=== PATIENT | male | born 1930 | race Caucasian/White ===

== ENCOUNTER 2019-12-12 18:29 | Inpatient (IN) | payer OTHER, BC, SELFPAY ==
[~2019-12-12] VITALS: Ht 198.1 cm; Wt 51.9 kg
[2019-12-12 18:47] VITALS: BP_SYST 119; BP_SYST 208
--- NOTE | 2019-12-12 18:47 | NUR ---
Placed in room 8. Placed on cardiac monitor technician, blood pressure machine and pulse oximeter. To gown for exam. Side rails up.
--- NOTE | 2019-12-12 18:48 | NUR ---
Patient came via [facility] from a SNF. Patient is non-verbal, no visual tracking. Complaint is GI bleed, low BP, hypoxia.
--- NOTE | 2019-12-12 19:14 | NUR ---
Patient is combatative, not staying still for CXR, Dr. Lopez notified.
[2019-12-12] MEDS ORDERED: LORazepam 2 MG/ML VIAL IVP ONE ×2 (19:15→19:45)
--- NOTE | 2019-12-12 19:15 | NUR ---
Report given to GYPSY Loaiza for continuation of care.
--- NOTE | 2019-12-12 19:26 | NUR ---
pt is combative and removing all lines, blood pressure cuff, IV lines, and ekg's. Pt medicated as ordered.
--- NOTE | 2019-12-12 19:40 | NUR ---
pt is still not cooperating with treatment. Not able to obtain labs or start new lines on patient. made aware.
--- NOTE | 2019-12-12 20:45 | NUR ---
PT CONTINUES TO BE UNCOOPERATIVE WITH TREATMENT. CONSTANTLY REMOVING IV LINE, BLOOD PRESSURE CUFF AND HEART MONITOR. WELL REMOVING HIS OXYGEN. PROVIDER MADE AWARE. NEW ORDERS RECIEVED.
[2019-12-12 20:59] LABS: HEMATOCRIT 43.8 % (36-54); HEMOGLOBIN 13.6 g/dL (14.0-18.0); LYMPHOCYTES % (AUTO) 6.9 % (20.5-51.5); MEAN CORPUSCULAR HEMOGLOBIN 29 pg (27-31); MEAN CORPUSCULAR HGB CONC 31 % (32-36); MEAN CORPUSCULAR VOLUME 93 fL (79.0-98.0); MONOCYTES # (AUTO) 0.9 K/uL (0.0-1.0); MONOCYTES % (AUTO) 6.2 % (1.7-9.3); NEUTROPHILS # (AUTO) 12.2 K/uL (1.8-7.7); NEUTROPHILS % (AUTO) 86.9 % (40.0-70.0); PLATELET COUNT (AUTO) 138 K/uL (130-430); RED CELL DISTRIBUTION WIDTH 16.9 % (9.0-15.0); WHITE BLOOD COUNT (AUTO) 14.1 K/uL (4.8-10.8)
[2019-12-12] MEDS ORDERED: DIPHENHYDRAMINE INJ 50 MG/ML VIAL IVP ONE (21:00)
[2019-12-12] MEDS ORDERED: HALOPERIDOL LACTATE 5 MG/ML VIAL IM ONE (21:00)
[2019-12-12 21:27] LABS: ANION GAP 24 (5-15); CHLORIDE 116 mmol/L (98-107); GLUCOSE 110 mg/dL (70-99); SODIUM SERUM 150 mmol/L (136-145)
[2019-12-12 21:30] LABS: ALANINE AMINOTRANSFERASE 17 U/L (12-78); ALBUMIN 3.9 g/dL (3.4-4.8); ASPARTATE AMINOTRANSFERASE 17 U/L (10-37); TOTAL BILIRUBIN 0.6 mg/dL (0.0-1.0)
[2019-12-12 21:35] LABS: CREATININE 10.96 mg/dL (0.55-1.30); POTASSIUM 7.6 mmol/L (3.5-5.1); UREA NITROGEN, BLOOD 186 mg/dL (8-21)
[2019-12-12] MEDS ORDERED: LIP10 PO (21:45)
[2019-12-12] MEDS ORDERED: SPIR25TA PO (21:45)
[2019-12-12] MEDS ORDERED: FINA5TAB3 PO (21:46)
[2019-12-12] MEDS ORDERED: CYAN100T3 PO (21:47)
[2019-12-12] MEDS ORDERED: BENA20TA75 PO ×2 (21:48→21:51)
[2019-12-12] MEDS ORDERED: CHOL100035 PO (21:48)
[2019-12-12] MEDS ORDERED: AMLO5TAB4 PO (21:49)
[2019-12-12] MEDS ORDERED: HYDR12.55 PO (21:49)
--- NOTE | 2019-12-12 21:53 | NUR ---
Medication reconciliation completed with information provided by Pino Schofield. Any prior medication reconciliation on file was reviewed and corrected.
[2019-12-12] MEDS ORDERED: INSULIN REGULAR, HUMAN 10 UNITS/0.1 ML INJ IVP ONE (22:00)
[2019-12-12] MEDS ORDERED: DEXTROSE 50% JECT 50 ML DISP.SYRIN IVP ONE (22:00)
[2019-12-12] MEDS ORDERED: SODIUM POLYSTYRENE SULFONATE 15 GM/60 ML UDBTL PO ONE (22:00)
--- NOTE | 2019-12-12 22:04 | NUR ---
pt continues to not allow EKG to be done or IV. made aware.
[2019-12-13] VITALS (23 sets, daily range): BP systolic 73–150
--- NOTE | 2019-12-13 | NUR ---
Spoke with Dr. Ash, recieved dialysis orders. Stated that admission orders would be issued by . instructed to consult for placement of Dialysis catheter in order to facilitate emergency dialysis.
--- NOTE | 2019-12-13 00:01 | NUR ---
contacted, stated that he would be unable to perform dialysis catheter placement, to consult . Dr. Valle was contacted and stated he will be able to do placement in early am, approx 7.
--- NOTE | 2019-12-13 00:02 | NUR ---
Spoke with for admission orders. Patient will be admitted to care of . Admitted to ICU unit. Pending room assignment, pt will be ICU Hold in ER. Belongings list completed. Complete and up to date summary report printed. SBAR report to be given at bedside with opportunity for questions during transfer.
[2019-12-13] MEDS ORDERED: SODIUM POLYSTYRENE SULFONATE 15 GM/60 ML UDBTL NG ONE (00:45)
[2019-12-13] MEDS ORDERED: HEPARIN SODIUM,PORCINE 5000 UNITS/ML VIAL MC SCH (02:00)
[2019-12-13] MEDS: SODIUM BICARBONATE 8.4% JECT 100 MEQ in D5W 1,000 ML IV SCH ×2 (02:19→23:44)
[2019-12-13] MEDS ORDERED: SODIUM BICARBONATE 8.4% JECT 50 MEQ/50 ML SYRINGE ONE ×3 (02:42→05:49)
[2019-12-13] MEDS ORDERED: LORazepam 2 MG/ML VIAL IVP ONE (05:30)
[2019-12-13] MEDS ORDERED: LORazepam 2 MG/ML VIAL ONE (05:53)
[2019-12-13 06:43] LABS: BASOPHILS % (AUTO) 0.1 % (0.0-2.0); HEMATOCRIT 37.7 % (36-54); HEMOGLOBIN 12.3 g/dL (14.0-18.0); LYMPHOCYTES # (AUTO) 0.6 K/uL (1.0-5.5); LYMPHOCYTES % (AUTO) 4.8 % (20.5-51.5); MEAN CORPUSCULAR HEMOGLOBIN 29 pg (27-31); MEAN CORPUSCULAR HGB CONC 33 % (32-36); MEAN CORPUSCULAR VOLUME 89 fL (79.0-98.0); MONOCYTES # (AUTO) 1.2 K/uL (0.0-1.0); MONOCYTES % (AUTO) 9.8 % (1.7-9.3); NEUTROPHILS # (AUTO) 10.8 K/uL (1.8-7.7); NEUTROPHILS % (AUTO) 85.3 % (40.0-70.0); PLATELET COUNT (AUTO) 132 K/uL (130-430); RED BLOOD CELL COUNT(AUTO) 4.23 MIL/uL (4.2-6.2); RED CELL DISTRIBUTION WIDTH 16.2 % (9.0-15.0); WHITE BLOOD COUNT (AUTO) 12.7 K/uL (4.8-10.8)
[2019-12-13 06:56] LABS: ANION GAP 21 (5-15); CALCIUM 8.6 mg/dL (8.4-11.0); CHLORIDE 115 mmol/L (98-107); GLUCOSE 130 mg/dL (70-99); SODIUM SERUM 148 mmol/L (136-145)
[2019-12-13 06:58] LABS: ALANINE AMINOTRANSFERASE 19 U/L (12-78); ALBUMIN 3.7 g/dL (3.4-4.8); PHOSPHORUS 7.9 mg/dL (2.7-4.5); TOTAL BILIRUBIN 0.8 mg/dL (0.0-1.0)
[2019-12-13 07:08] LABS: POTASSIUM 5.9 mmol/L (3.5-5.1); UREA NITROGEN, BLOOD 186 mg/dL (8-21)
[2019-12-13 07:09] LABS: ASPARTATE AMINOTRANSFERASE 32 U/L (10-37)
--- NOTE | 2019-12-13 07:30 | NUR ---
Patient will be admitted to [facility]. Admitted to ICU unit. Will go to room 2. Belongings list completed. Complete and up to date summary report printed. SBAR report to be given at bedside with opportunity for questions.
--- NOTE | 2019-12-13 07:45 | NUR ---
ICU Opening Note Patient brought to ICU-4 from ER for continuation of care. Patient on 15 L oxygen via face mask with labored breathing. Patient has NGT in place clamped. Patient is hypotensive with blood pressure 78/36. Patient has several peripheral IVs and a right femoral triple lumen central line. Patient has bautista catheter draining nelson urine to gravity. paged for orders. Will continue to monitor. Bed locked in lowest position and bed alarm on. Fall and safety precautions in place.
--- NOTE | 2019-12-13 08:58 | NUR ---
Dr. Olivo at bedside examining patient. Made aware of patient being hypotensive with blood pressure 73/42. New orders received to start Levophed.
[2019-12-13] MEDS ORDERED: NOREPINEPHRINE 4 MG/4 ML VIAL IV ONE (09:07)
[2019-12-13] MEDS: PIPERACILLIN/TAZO 2.25G/DEX-IS 50 ML IV SCH ×4 (09:45→23:44)
--- NOTE | 2019-12-13 09:45 | NUR ---
Dr. Barreto in unit. New orders received.
--- NOTE | 2019-12-13 10:00 | NUR ---
Intubation Dr. Barreto at bedside for intubation. No signs or symptoms of acute distress noted. Patient intubated with ETT size 7.5, lip line 24 cm. Vent settings AC 16, TV 450, FiO2 100%, and PEEP 0.
[2019-12-13 11:10] LABS: INR 1.1 (0.80-1.20)
[2019-12-13] MEDS ORDERED: PANTOPRAZOLE SODIUM 40 MG/VIAL (PROTONIX) IVP ONE (11:15)
--- NOTE | 2019-12-13 11:40 | NUR ---
Hemodialysis Hemodialysis being done at bedside by hybrid tester.
[2019-12-13] MEDS ORDERED: ALBUMIN HUMAN 25% 100 ML IV ONE ×2 (11:44→11:52)
[2019-12-13] MEDS ORDERED: HEPARIN SODIUM,PORCINE 5000 UNITS/ML VIAL IV ONE ×2 (12:15)
[2019-12-13] MEDS ORDERED: ROCURONIUM BROMIDE 10 MG/ML (ZEMURON) IV ONE (12:25)
[2019-12-13] MEDS ORDERED: ETOMIDATE 20 MG/ 10 ML VIAL (AMIDATE) IVP ONE (12:25)
[2019-12-13] MEDS ORDERED: HEPARIN SODIUM,PORCINE 5000 UNITS/ML VIAL ONE (12:28)
--- NOTE | 2019-12-13 14:23 | NUR ---
Stat chest xray ordered for tube placement. Vent changed out and pts pressures remain low with vent continuing to alarm. Radiology called. HR 86, RR 32, 02 sats 100% abd BP 109/51 on Levophed at 8 mcgs.
--- NOTE | 2019-12-13 15:39 | NUR ---
Spoke with Dr. Barreto regarding ABG results and ventilator continuing to alarm despite suctioning, checking for leaks, and switching out ventilator. Per Dr. Barreto, new vent settings made and orders for Diprivan Drip to be started. Also spoke with Dr. Barreto regarding unsuccessful attempts to insert NGT due to bleeding and patient being unable to tolerate. Per Dr. Barreto, try to insert NGT tomorrow.
[2019-12-13] MEDS ORDERED: VANCOMYCIN HCL 500 MG in NS 100 ML IV ONE (16:00)
--- NOTE | 2019-12-13 16:15 | NUR ---
RT NOTES DECREASED RATE TO 14 AND INCREASED VT TO [address] JULES. DECREASED FIO2 TO 50% PER ABG RESULTS. GYPSY GALVAN IS AWARE. WILL CONTINUE MONITORING.
[2019-12-13] MEDS: PROPOFOL DRIP 100 ML IV PRN (17:15)
[2019-12-13] MEDS: NOREPINEPHRINE BITARTRATE 8 MG in D5W 242 ML IV PRN ×2 (17:17→23:43)
[2019-12-13] MEDS ORDERED: ALBUMIN HUMAN 25% 200 ML IV ONE (19:15)
--- NOTE | 2019-12-13 19:29 | NUR ---
Closing Note Patient resting in bed, no signs or symptoms of acute distress noted. Endorsed bedside report to oncoming RN using SBAR approach for continuation of care.
--- NOTE | 2019-12-13 20:00 | NUR ---
PICC LINE INSERTED IN BENJAMÍN. ORALLY INTUBATED. SUCTIONED WITH MOD AMOUNT OF THIN MONAHAN COLORED MUCUS OBTAINED. ORAL CARE DONE. ON LEVOPHED DRIP AT 20 MCG/MIN. ON DIPRIVAN AT 15 MCG/KG/MIN. SUNDAR SOFT WRIST RESTRAINTS ON FOR SAFETY. RAHMAN CATH PATENT DRAINING CLEAR SID URINE TO GRAVITY. SR.
--- NOTE | 2019-12-13 21:00 | NUR ---
NASAL SWAB SENT TO LAB FOR MRSA TEST.
[2019-12-13] MEDS: PANTOPRAZOLE SODIUM 40 MG/VIAL (PROTONIX) IVP SCH (21:20)
--- NOTE | 2019-12-13 22:00 | NUR ---
HS CARE. SUCTIONED TURNED. PULSES PALPABLE.
--- NOTE | 2019-12-13 23:00 | NUR ---
PT'S SISTER CHRISTIAN CALLED. UPDATED ON STATUS.
[2019-12-14] VITALS (36 sets, daily range): BP systolic 93–136
--- NOTE | 2019-12-14 | NUR ---
SUCTIONED. TURNED. ORAL CARE RENDERED.
--- NOTE | 2019-12-14 02:00 | NUR ---
ASLEEP/SEDATED. NO DISTRESS NOTED.
--- NOTE | 2019-12-14 04:00 | NUR ---
SUCTIONED. TURNED. ORAL CARE DONE.
--- NOTE | 2019-12-14 05:00 | NUR ---
CHG BATH GIVEN. RAHMAN CARE, BACK CARE, SKIN CARE, MIN-CARE GIVEN. RESISTIVE TO CARE. PARTIAL LINEN CHANGE. DOES NOT ASSIST WITH TURNING. FERNIE PROC WELL.
[2019-12-14 05:52] LABS: BASOPHILS % (AUTO) 0.1 % (0.0-2.0); EOSINOPHILS % (AUTO) 0.1 % (0.0-4.0); HEMATOCRIT 34.8 % (36-54); HEMOGLOBIN 11.7 g/dL (14.0-18.0); LYMPHOCYTES # (AUTO) 1.6 K/uL (1.0-5.5); LYMPHOCYTES % (AUTO) 12.7 % (20.5-51.5); MEAN CORPUSCULAR HEMOGLOBIN 30 pg (27-31); MEAN CORPUSCULAR HGB CONC 34 % (32-36); MEAN CORPUSCULAR VOLUME 88 fL (79.0-98.0); MONOCYTES % (AUTO) 7.7 % (1.7-9.3); NEUTROPHILS # (AUTO) 10.2 K/uL (1.8-7.7); NEUTROPHILS % (AUTO) 79.4 % (40.0-70.0); PLATELET COUNT (AUTO) 109 K/uL (130-430); RED BLOOD CELL COUNT(AUTO) 3.98 MIL/uL (4.2-6.2); WHITE BLOOD COUNT (AUTO) 12.9 K/uL (4.8-10.8)
--- NOTE | 2019-12-14 06:00 | NUR ---
UO GOOD. STILL AT LEVOPHED DRIP AT 20 MCG/MIN, & PROPOFOL DRIP AT 15 MCG/KG/MIN. REMAINS IN GUARDED CONDITION.
[2019-12-14] MEDS: PIPERACILLIN/TAZO 2.25G/DEX-IS 50 ML IV SCH ×3 (06:15→17:17)
[2019-12-14 06:28] LABS: ANION GAP 15 (5-15); CALCIUM 7.9 mg/dL (8.4-11.0); CHLORIDE 102 mmol/L (98-107); CREATININE 6.79 mg/dL (0.55-1.30); GLUCOSE 178 mg/dL (70-99); POTASSIUM 3.9 mmol/L (3.5-5.1); SODIUM SERUM 142 mmol/L (136-145)
[2019-12-14] MEDS: NOREPINEPHRINE BITARTRATE 8 MG in D5W 242 ML IV PRN ×2 (06:56→15:37)
[2019-12-14] MEDS: PROPOFOL DRIP 100 ML IV PRN ×2 (06:58→22:11)
--- NOTE | 2019-12-14 06:58 | NUR ---
Nutrition Update Ludin Scale 14 noted. Pt admitted for Hyperkalemia, Renal Failure Diet: NPO BMI: 20.8 kg/m2 RD to follow per nutrition care standards.
[2019-12-14] MEDS ORDERED: NOREPINEPHRINE 4 MG/4 ML VIAL IV ONE (07:01)
[2019-12-14 07:12] LABS: UREA NITROGEN, BLOOD 105 mg/dL (8-21)
--- NOTE | 2019-12-14 07:15 | NUR ---
AM Endorsement Patient received from warehouse supervisor 3rd shift RN using SBAR format. Patient in no signs of distress at this time. Safety and isolation precautions observed.
--- NOTE | 2019-12-14 07:25 | NUR ---
Received critical lab result. bun and creatinine. trending down from previous result.
--- NOTE | 2019-12-14 08:00 | NUR ---
Opening Notes Patient sedated in bed with no signs of distress at this time. Patient connected to swimming pool service technician with NSR. Patient intubated and on ventilator with settings AC 14, tidal volume 500, FiO2 50%. Patient with BENJAMÍN PICC receiving sedation, levophed, and fluids. Patient with right femoral dialysis catheter for dialysis. Patient with bautista catheter draining nelson colored urine. Safety and isolation precautions observed.
[2019-12-14] MEDS: PANTOPRAZOLE SODIUM 40 MG/VIAL (PROTONIX) IVP SCH ×2 (08:05→22:10)
--- NOTE | 2019-12-14 10:30 | NUR ---
MD Rounds Dr. Olivo at bedside for examination. New orders received and carried out.
--- NOTE | 2019-12-14 12:00 | NUR ---
RN Rounds Patient being sedated at this time, no signs of distress noted. Patient orally suctioned with moderate blood-tinged secretions out. Safety precautions enforced.
--- NOTE | 2019-12-14 13:00 | NUR ---
Dialysis drafter directional survey at bedside at this time. Patient being closely monitored.
--- NOTE | 2019-12-14 13:00 | NUR ---
MD Rounds Dr. Valle at bedside for examination. No new orders received.
[2019-12-14] MEDS ORDERED: HEPARIN SODIUM, PORCINE 10,000 UNITS/ 10 ML VIAL MC ONE ×2 (14:00)
--- NOTE | 2019-12-14 16:00 | NUR ---
RN Rounds Patient still being sedated in bed at this time. Patient with no signs of distress. Safety precautions enforced.
--- NOTE | 2019-12-14 17:45 | NUR ---
RT NOTES Transported pt from ICU 4 to ICU 2, pt remained on the vent. ETT remains secure.
--- NOTE | 2019-12-14 17:50 | NUR ---
MD Rounds Dr. Barreto at bedside for examination. New orders received and carried out.
--- NOTE | 2019-12-14 17:55 | NUR ---
RT NOTES Per Dr Barreto's order, vent settings to PEEP 5
--- NOTE | 2019-12-14 18:00 | NUR ---
Room change Patient moved from ICU-4 to ICU-2 accompanied by two RNs and RT. Patient tolerated transfer well. Patient connected to mix house tender and ventilator set up. Patient with no signs of distress.
--- NOTE | 2019-12-14 19:20 | NUR ---
OPENING NOTE SBAR REPORT RECEIVED FROM DUGLAS BETANCUR. CARE ASSUMED. PT LAYING IN BED. PT SEDATED. PT INTUBATED. ETT SIZE 7.5 LIP LINE 24. VENT SETTINGS AC 14, TIDAL VOLUME 500, FIO2 50%, PEEP 5. PT TOLERATING SETTING WELL. O2 SATURATION 100%. SINUS RHYTHM ON MONITOR. PT HAS RUE PICC LINE RUNNING LEVOPHED @ 10 MCG/MIN AND DIPRIVAN @ 15 MCG/MIN. PT HAS RIGHT FEMORAL DIALYSIS ANN CATHETER. PT HAD DIALYSIS IN AM WITH 500ML OUTPUT. RADIAL AND PEDAL PULSES PRESENT. 2 + PITTING EDEMA TO LEFT HAND. ABDOMEN SOFT NON DISTENDED. BOWEL SOUNDS ACTIVE. RAHMAN CATHETER IN PLACE. URINE YELLOW. SKIN INTACT. BED LOCKED IN LOWEST POSITION. CALL LIGHT WITHIN REACH. SAFETY PRECAUTIONS IN PLACE. WILL CONTINUE TO MONITOR.
--- NOTE | 2019-12-14 19:24 | NUR ---
Closing Notes Patient endorsed to restaurant shift supervisor RN using SBAR format. Patient in no signs of distress at this time. Safety and isolation precautions enforced.
[2019-12-15] VITALS (35 sets, daily range): BP systolic 85–135
[2019-12-15] MEDS: PIPERACILLIN/TAZO 2.25G/DEX-IS 50 ML IV SCH ×5 (00:09→23:28)
[2019-12-15] MEDS: NOREPINEPHRINE BITARTRATE 8 MG in D5W 242 ML IV PRN ×2 (03:31→16:13)
[2019-12-15 05:10] LABS: BASOPHILS % (AUTO) 0.2 % (0.0-2.0); EOSINOPHILS # (AUTO) 0.1 K/uL (0.0-0.4); EOSINOPHILS % (AUTO) 0.9 % (0.0-4.0); HEMATOCRIT 34.9 % (36-54); HEMOGLOBIN 11.9 g/dL (14.0-18.0); LYMPHOCYTES # (AUTO) 1.7 K/uL (1.0-5.5); LYMPHOCYTES % (AUTO) 16.3 % (20.5-51.5); MEAN CORPUSCULAR HEMOGLOBIN 30 pg (27-31); MEAN CORPUSCULAR HGB CONC 34 % (32-36); MEAN CORPUSCULAR VOLUME 87 fL (79.0-98.0); MONOCYTES # (AUTO) 0.8 K/uL (0.0-1.0); MONOCYTES % (AUTO) 7.6 % (1.7-9.3); PLATELET COUNT (AUTO) 95 K/uL (130-430); RED BLOOD CELL COUNT(AUTO) 4.03 MIL/uL (4.2-6.2); RED CELL DISTRIBUTION WIDTH 14.9 % (9.0-15.0); WHITE BLOOD COUNT (AUTO) 10.7 K/uL (4.8-10.8)
[2019-12-15 05:37] LABS: ALANINE AMINOTRANSFERASE 29 U/L (12-78); ALBUMIN 3.4 g/dL (3.4-4.8); ANION GAP 10 (5-15); ASPARTATE AMINOTRANSFERASE 82 U/L (10-37); CALCIUM 7.7 mg/dL (8.4-11.0); CHLORIDE 99 mmol/L (98-107); CREATININE 4.57 mg/dL (0.55-1.30); GLUCOSE 143 mg/dL (70-99); POTASSIUM 3.3 mmol/L (3.5-5.1); SODIUM SERUM 136 mmol/L (136-145); TOTAL BILIRUBIN 2.1 mg/dL (0.0-1.0); UREA NITROGEN, BLOOD 55 mg/dL (8-21)
--- NOTE | 2019-12-15 07:35 | NUR ---
AM Endorsement Patient received from shift mechanic RN using SBAR format. No signs of distress noted. Safety and isolation precautions observed.
--- NOTE | 2019-12-15 07:48 | NUR ---
CLOSING NOTE PT LAYING IN BED. NO SIGNS AND SYMPTOMS OF DISTRESS NOTED. SBAR REPORT GIVEN TO DUGLAS BETANCUR. CARE ENDORSED.
--- NOTE | 2019-12-15 08:00 | NUR ---
Opening Notes Patient sedated in bed at this time. Patient connected to esthetic dermatologist with NSR. Patient intubated and on ventilator with settings AC 14, tidal volume 500, FiO2 50%, and PEEP 5. No signs of distress noted. Patient with BENJAMÍN PICC receiving sedation and vasopressor. Patient with right femoral dialysis catheter for dialysis. Patient has a bautista catheter draining urine. Safety and isolation precautions observed.
[2019-12-15] MEDS ORDERED: VANCOMYCIN HCL 1,000 MG in NS 250 ML IV ONE (09:00)
[2019-12-15] MEDS: PANTOPRAZOLE SODIUM 40 MG/VIAL (PROTONIX) IVP SCH ×2 (09:26→20:32)
--- NOTE | 2019-12-15 12:00 | NUR ---
RN Rounds/CHG Patient with no signs of distress at this time. Patient still being sedated. CHG bath given and linens changed. Patient tolerated well. Patient suctioned orally with blood-tinged moderate secretions out. Safety precautions enforced.
--- NOTE | 2019-12-15 13:57 | NUR ---
Paged Dr. Graham for orders. Spoke with exchange.
--- NOTE | 2019-12-15 14:57 | NUR ---
New consult paged to Dr. Kruse, spoke with exchange.
--- NOTE | 2019-12-15 15:00 | NUR ---
Witnessed diprivan drip titration to 20 mcg/kg/min
--- NOTE | 2019-12-15 15:03 | NUR ---
GI Consult Dr. Kruse paged for consult regarding nutrition/ unable to place an OGT/NGT. Per Dr. Kruse, he will come by tomorrow morning to attempt OGT/NGT insertion.
--- NOTE | 2019-12-15 15:57 | NUR ---
Dietitian Recommendations *When/if medically feasible, initiate nutrition support. Please see Nutrition Assessment for further details. LT, RD
[2019-12-15] MEDS: D5/0.45 NS 1,000 ML IV SCH (17:47)
[2019-12-15] MEDS: PROPOFOL DRIP 100 ML IV PRN (17:48)
--- NOTE | 2019-12-15 19:30 | NUR ---
PM SHIFT ASSESSMENT Pt is sedated on vent. SR noted on monitor. BENJAMÍN PICCLINE in place with IVF infusing. Delgado catheter in place and draining to gravity. Skin warm and dry. Safety precautions in place, call light within reach. Will continue to monitor.
--- NOTE | 2019-12-15 19:31 | NUR ---
Closing Notes Patient endorsed to maintenance technician 3rd shift RN using SBAR format. No signs of distress noted.
[2019-12-16] VITALS (33 sets, daily range): BP systolic 82–151
--- NOTE | 2019-12-16 02:00 | NUR ---
Witnessed Witnessed Winnie BETANCUR titrate diprivan drip from 20 mcg/kg/min to 25 mcg/kg/min.
[2019-12-16] MEDS: PROPOFOL DRIP 100 ML IV PRN ×3 (02:34→18:01)
[2019-12-16] MEDS: PIPERACILLIN/TAZO 2.25G/DEX-IS 50 ML IV SCH ×4 (05:06→23:55)
--- NOTE | 2019-12-16 07:20 | NUR ---
Received patient and endorsed report. Patient in no acute distress. Side rails x 3 up. Call light with in reach.
--- NOTE | 2019-12-16 07:24 | NUR ---
ENDORSEMENT Pt care endorsed to dayshift RN using nursing SBAR.
--- NOTE | 2019-12-16 08:30 | NUR ---
Md Kruse at bedside, placed OGT. Verified placement with auscultation. New order of chest x-ray.
--- NOTE | 2019-12-16 09:10 | NUR ---
Informed MD Kruse chest x-ray results of OGT placement, ordered to advance 5 to 10 centimeters than pull back and order new chest x-ray for verification of placement. Verified placement with auscultation.
--- NOTE | 2019-12-16 09:10 | NUR ---
MD Olivo at bedside.
[2019-12-16] MEDS: PANTOPRAZOLE SODIUM 40 MG/VIAL (PROTONIX) IVP SCH ×2 (09:23→20:52)
[2019-12-16] MEDS: NOREPINEPHRINE BITARTRATE 8 MG in D5W 242 ML IV PRN (10:46)
--- NOTE | 2019-12-16 11:20 | NUR ---
Rubin PAGED DR TORRES WITH REGARDS TO CHEST XRAY RESULT S/P OGT PLACEMENT.
[2019-12-16] MEDS: D5/0.45 NS 1,000 ML IV SCH ×2 (13:01→17:49)
--- NOTE | 2019-12-16 14:23 | NUR ---
Rubin PAGED DR TORRES IN REGARDS TO REPEATED CHEST XRAY, RETURNED THE CALL. READ OUT THE RADIOLOGIST'S IMPRESSION. STATED TO LEAVE THE OGT IN, NOT TO USE IT.
--- NOTE | 2019-12-16 16:25 | NUR ---
MD Barreto at bedside.
[2019-12-16] MEDS ORDERED: HEPARIN SODIUM,PORCINE 5000 UNITS/ML VIAL SUBCUT ONE (17:30)
--- NOTE | 2019-12-16 19:25 | NUR ---
Endorsed patient and gave report to NOC shift nurse. Patient in no acute distress. Side rails x 3 up.
--- NOTE | 2019-12-16 20:00 | NUR ---
ORALLY INTUBATED. SUCTIONED ETT WITH SMALL OF THIN WHITE MUCUS OBTAINED. ORAL CARE GIVEN. BUCCAL CAVITY WITH RED-TINGED SALIVA OBTAINED. SEATED. ON DIPRIVAN AT 25 MCG/KG/MIN. ON LEVOPHED DRIP AT 7 MCG/MIN. BENJAMÍN PICC LINE DRSG D/I. SUNDAR SOFT WRIST RESTRAINTS ON FOR SAFETY. RIGHT FEMORAL ANN CATH DRSG D/I. SUNDAR SCD'S IN PLACE. RAHMAN CATH PATENT DRAINING CLEAR YELLOW URINE TO GRAVITY. SR.
--- NOTE | 2019-12-16 21:40 | NUR ---
FIO2 DECREASED TO 40 % BY RT PER TITRATE ORDERS. HS CARE.
--- NOTE | 2019-12-16 23:00 | NUR ---
SISTER CHRISTIAN CALLED IN, UPDATED ON STATUS. REQUESTS DR ENRIQUE TO GIVE HER A CALL. NOTE LEFT WITH DR ENRIQUE.
[2019-12-17] VITALS (34 sets, daily range): BP systolic 95–140
--- NOTE | 2019-12-17 | NUR ---
SUCTIONED. TURNED. ORAL CARE GIVEN. PULSES PALPABLE.
--- NOTE | 2019-12-17 02:00 | NUR ---
ASLEEP. NO DISTRESS NOTED.
[2019-12-17] MEDS: NOREPINEPHRINE BITARTRATE 8 MG in D5W 242 ML IV PRN ×2 (03:48→20:20)
--- NOTE | 2019-12-17 04:00 | NUR ---
SUCTIONED. TURNED. ORAL CARE RENDERED. CIRCULATION CHECK DONE.
[2019-12-17] MEDS: PROPOFOL DRIP 100 ML IV PRN ×2 (05:11→21:26)
--- NOTE | 2019-12-17 06:00 | NUR ---
1 MODERATE DARK LOOSE BURGUNDY STOOL DEFECATED. UO GOOD. MIN CARE GIVEN. RAHMAN CARE, BACK CARE, SKIN CARE DONE. PARTIAL LINEN CHANGE DONE. PULSES PALPABLE. DOES NOT ASSIST WITH TURNING. FERNIE PROC WELL. REMAINS IN GUARDED CONDITION.
[2019-12-17] MEDS: PIPERACILLIN/TAZO 2.25G/DEX-IS 50 ML IV SCH ×3 (06:07→17:12)
[2019-12-17] MEDS: HEPARIN SODIUM,PORCINE 5000 UNITS/ML VIAL SUBCUT SCH ×2 (06:08→17:16)
[2019-12-17 06:39] LABS: BASOPHILS % (AUTO) 0.1 % (0.0-2.0); EOSINOPHILS # (AUTO) 0.5 K/uL (0.0-0.4); HEMATOCRIT 32.9 % (36-54); LYMPHOCYTES # (AUTO) 1.2 K/uL (1.0-5.5); LYMPHOCYTES % (AUTO) 10.1 % (20.5-51.5); MEAN CORPUSCULAR HEMOGLOBIN 29 pg (27-31); MEAN CORPUSCULAR HGB CONC 34 % (32-36); MEAN CORPUSCULAR VOLUME 86 fL (79.0-98.0); MONOCYTES # (AUTO) 0.8 K/uL (0.0-1.0); MONOCYTES % (AUTO) 7.2 % (1.7-9.3); NEUTROPHILS # (AUTO) 9.1 K/uL (1.8-7.7); NEUTROPHILS % (AUTO) 78.6 % (40.0-70.0); PLATELET COUNT (AUTO) 133 K/uL (130-430); RED BLOOD CELL COUNT(AUTO) 3.81 MIL/uL (4.2-6.2); RED CELL DISTRIBUTION WIDTH 14.4 % (9.0-15.0); WHITE BLOOD COUNT (AUTO) 11.6 K/uL (4.8-10.8)
[2019-12-17 06:45] LABS: ALANINE AMINOTRANSFERASE 30 U/L (12-78); ALBUMIN 2.7 g/dL (3.4-4.8); ANION GAP 15 (5-15); ASPARTATE AMINOTRANSFERASE 59 U/L (10-37); CALCIUM 7.6 mg/dL (8.4-11.0); CHLORIDE 98 mmol/L (98-107); CREATININE 4.61 mg/dL (0.55-1.30); GLUCOSE 120 mg/dL (70-99); SODIUM SERUM 137 mmol/L (136-145); TOTAL BILIRUBIN 1.2 mg/dL (0.0-1.0); UREA NITROGEN, BLOOD 59 mg/dL (8-21)
[2019-12-17 06:51] LABS: POTASSIUM 2.6 mmol/L (3.5-5.1)
--- NOTE | 2019-12-17 07:30 | NUR ---
Opening Note Received bedside report from endorsing RN for continuation of care. Received patient intubated and sedated, resting in bed. No signs or symptoms of acute distress noted. Bed locked in lowest position and bed alarm on. Fall and safety precautions in place.
--- NOTE | 2019-12-17 08:07 | NUR ---
Page out to Dr. Olivo, spoke with exchange.
--- NOTE | 2019-12-17 08:22 | NUR ---
Spoke with Dr. Olivo regarding potassium 2.6, new orders received.
--- NOTE | 2019-12-17 08:40 | NUR ---
Dr. Olivo in to see patient. New orders received.
[2019-12-17] MEDS ORDERED: POTASSIUM CHLORIDE 40 MEQ in NS 250 ML IV ONE ×2 (09:00→18:00)
[2019-12-17] MEDS: PANTOPRAZOLE SODIUM 40 MG/VIAL (PROTONIX) IVP SCH ×2 (09:58→22:25)
--- NOTE | 2019-12-17 11:15 | NUR ---
Witness diprivan drip titration to 15 mcg/kg/min
--- NOTE | 2019-12-17 11:15 | NUR ---
Jihan ELIAS at bedside examining patient. No new orders.
--- NOTE | 2019-12-17 11:30 | NUR ---
Witness diprivan drip titration 10 mcg/kg/min
--- NOTE | 2019-12-17 11:45 | NUR ---
Witness diprivan drip titration to 15 mcg/kg/min.
--- NOTE | 2019-12-17 12:49 | NUR ---
Dr. Martin at bedside examining patient. New orders received.
--- NOTE | 2019-12-17 13:36 | NUR ---
Jose Alfredo schofield drip titration to 15 mcg/kg/min. Addendum: 12/17/19 at 1339 by Shyanne Padron RN INCORRECT ENTRY
--- NOTE | 2019-12-17 14:20 | NUR ---
CHG/BM Patient given CHG bath and bed linens changed. Patient had loose liquid dark red stool. Patient cleaned, turned, repositioned, and suctioned. No signs or symptoms of acute distress noted. Bed locked in lowest position and bed alarm on. Fall and safety precautions in place.
--- NOTE | 2019-12-17 14:57 | NUR ---
Nutrition F/U Admitting Diagnosis Sepsis, R/O COVID-19 Reviewed Pertinent Medical/Surgical Hx Medical Record Other Medical History Comment: PMHx includes HTN, mild dementia, ESRD per physician notes. Pt was admitted for severe hypotension, acute renal failure, GI and rectal bleeding, septic shock, acute encephalopathy, and respiratory failure per physician notes. Per Bed Huddle 12/14, pt is modified code, family declined CPR. Subjective Information Pt is still in ICU, NPO status. RD spoke w/ RN via telephone who reports that pt remains unable to receive TF d/t unknown nasal blockage. RN reports that TPN will be considered if another MD tries and is still unable to place nasal tube tomorrow. RN reports no other upcoming plans/procedures. Pt was supposed to receive Nepro 20ml/hr with a goal rate of 40ml/hr and a free water flush 100ml Q6H. Pt tested negative for Covid on 12/14. Pt is not yet meeting nutrition needs and nutrition education not appropriate at this time. Current Diet Order/Nutrition Support NPO x4 days Patient/Significant Other Unable To Verbalize Education Provided Not Indicated Pertinent Medications Propofol, Vanco, Norepinephrine, Heparin, Protonix Pertinent Labs (12/16) K: 2.6 L, BUN: 59 H, Cr: 4.61 H, Glu: 120 H, Ca 7.6 L Height (Feet) 6 feet Height (Inches) 6.00 inches Weight (Pounds) 129 pounds Weight (Calculated Kilograms) 58.988766 kilograms Patient Weight 58.513 kg Body Mass Index 14.91 kg/m2 %IBW 91 Ellis/Adjusted Body Weight IBW: 142lbs, 65kg Recent Weight Change No - pt unable to verify Weight Status Underweight Gastrointestinal Symptoms None Usual Diet At Home Pt unable to verify Skin Integrity Comment: Ludin Score: 13. Per RN note, no pressure injuries identified, +2 pitting edema to the left hand. Current % PO NPO Estimated Energy Expenditure (kcals/day) 1244kcal/day ([place] for critical illness on vent) Estimated Protein Required (g/day) 88-117g/day (1.5-2g/kg based on critical illness, sepsis) Estimated Fluid Required (l/day) Fluid needs deferred to MD d/t TRE, HD. Problem/Etiology/Signs/Symptoms Inadequate enteral enfusion related to unknown nasal obstruction as evidenced by unsuccessful NGT and OGT placement (*ongoing) Increased nutrient needs related to increased metabolic demands as evidenced by critical illness, sepsis (*ongoing) Expected Outcomes/Goals Monitor provision of nutrition w/ goal of pt meeting at least 50% of estimated nutritional needs, labs trending WNL, normal GI function, and skin integrity/wt maintenance Dietitian Recommendations When/if medically feasible, initiate nutrition support. Follow Up High Risk: F/U in 2-3days
--- NOTE | 2019-12-17 15:13 | NUR ---
Dietitian Recommendations When/if medically feasible, initiate nutrition support. SS, RD
[2019-12-17] MEDS ORDERED: *TPN PER PHARMACY XX PRN (15:15)
[2019-12-17] MEDS ORDERED: DEXTROSE 50% JECT 50 ML DISP.SYRIN IVP PRN (15:15)
[2019-12-17] MEDS ORDERED: VANCOMYCIN HCL 1,000 MG in NS 250 ML IV ONE (16:00)
--- NOTE | 2019-12-17 17:45 | NUR ---
Witness diprivan drip titration to 20 mcg/kg/min
--- NOTE | 2019-12-17 18:45 | NUR ---
Hemodialysis Hemodialysis being done at bedside by owner/photographer. No signs or symptoms of acute distress noted.
--- NOTE | 2019-12-17 19:20 | NUR ---
OPENING NOTE RECEIVED PATIENT AFTER REPORT FROM DAYSHIFT NURSE. CURRENTLY RECEIVING DIALYSIS; DIALYSIS NURSE AT BEDSIDE. SEDATED WITH DIPRIVAN, LEVOPHED INFUSING FOR BP SUPPORT. VENT TO ETT IN PLACE; SETTINGS TOLERATED. WILL CONTINUE TO MONITOR PATIENT PER UNIT PROTOCOL.
--- NOTE | 2019-12-17 19:25 | NUR ---
Closing Note Endorsed bedside report to oncoming RN using SBAR approach for continuation of care.
[2019-12-17] MEDS ORDERED: HEPARIN SODIUM,PORCINE 5000 UNITS/ML VIAL ONE (21:32)
--- NOTE | 2019-12-17 22:40 | NUR ---
DIALYSIS OUTPUT 400. PATIENT TOLERATED WELL.
--- NOTE | 2019-12-17 23:00 | NUR ---
DR MANJARREZ AT BEDSIDE ATTEMPT TO PLACE NGT OR OGT UNSUCCESSFUL BY DR MANJARREZ. UNABLE TO PASS ENCOUNTERING RESISTANCE.
[2019-12-18] VITALS (32 sets, daily range): BP systolic 82–132
--- NOTE | 2019-12-18 00:20 | NUR ---
ASSESSMENT COMPLETED. PATIENT REPOSITIONED FOR COMFORT. BM NOTED WITH SIGNS OF BLEEDING RECTALLY. PATIENT WAS CLEANED.
[2019-12-18] MEDS: PIPERACILLIN/TAZO 2.25G/DEX-IS 50 ML IV SCH ×5 (01:13→23:52)
--- NOTE | 2019-12-18 03:00 | NUR ---
bleeding detected from Right groin wanda. New dressing applied and pressure dressing with 2 lbs bag also applied to control bleeding. will continue to monitor.
[2019-12-18] MEDS: D5/0.45 NS 1,000 ML IV SCH (05:00)
[2019-12-18] MEDS: HEPARIN SODIUM,PORCINE 5000 UNITS/ML VIAL SUBCUT SCH ×2 (06:00→18:54)
[2019-12-18 06:31] LABS: BASOPHILS % (AUTO) 0.4 % (0.0-2.0); EOSINOPHILS # (AUTO) 0.3 K/uL (0.0-0.4); EOSINOPHILS % (AUTO) 2.8 % (0.0-4.0); HEMATOCRIT 33.9 % (36-54); HEMOGLOBIN 11.2 g/dL (14.0-18.0); LYMPHOCYTES # (AUTO) 0.8 K/uL (1.0-5.5); LYMPHOCYTES % (AUTO) 6.6 % (20.5-51.5); MEAN CORPUSCULAR HEMOGLOBIN 29 pg (27-31); MEAN CORPUSCULAR HGB CONC 33 % (32-36); MEAN CORPUSCULAR VOLUME 88 fL (79.0-98.0); MONOCYTES % (AUTO) 8.9 % (1.7-9.3); NEUTROPHILS # (AUTO) 9.4 K/uL (1.8-7.7); NEUTROPHILS % (AUTO) 81.3 % (40.0-70.0); PLATELET COUNT (AUTO) 155 K/uL (130-430); RED BLOOD CELL COUNT(AUTO) 3.86 MIL/uL (4.2-6.2); RED CELL DISTRIBUTION WIDTH 15.3 % (9.0-15.0); WHITE BLOOD COUNT (AUTO) 11.6 K/uL (4.8-10.8)
[2019-12-18 06:58] LABS: ALANINE AMINOTRANSFERASE 29 U/L (12-78); ALBUMIN 2.6 g/dL (3.4-4.8); ANION GAP 11 (5-15); ASPARTATE AMINOTRANSFERASE 48 U/L (10-37); CALCIUM 8.1 mg/dL (8.4-11.0); CHLORIDE 99 mmol/L (98-107); CREATININE 2.91 mg/dL (0.55-1.30); GLUCOSE 145 mg/dL (70-99); PHOSPHORUS 3.4 mg/dL (2.7-4.5); POTASSIUM 3.5 mmol/L (3.5-5.1); SODIUM SERUM 135 mmol/L (136-145); TOTAL BILIRUBIN 1.2 mg/dL (0.0-1.0); TRIGLYCERIDES 147 mg/dL (30-150); UREA NITROGEN, BLOOD 29 mg/dL (8-21); VANCOMYCIN,RANDOM 21.4 ug/mL
--- NOTE | 2019-12-18 07:20 | NUR ---
Received patient and endorsed report. Patient in no acute distress. Side rails x 3 up. Call light with in reach.
[2019-12-18] MEDS: PROPOFOL DRIP 100 ML IV PRN ×2 (08:09→18:53)
[2019-12-18] MEDS: NOREPINEPHRINE BITARTRATE 8 MG in D5W 242 ML IV PRN ×2 (08:10→18:52)
[2019-12-18] MEDS: PANTOPRAZOLE SODIUM 40 MG/VIAL (PROTONIX) IVP SCH ×2 (09:10→21:08)
--- NOTE | 2019-12-18 09:55 | NUR ---
MD Olivo at bedside.
--- NOTE | 2019-12-18 10:00 | NUR ---
MD Martin at bedside.
--- NOTE | 2019-12-18 10:30 | NUR ---
MD Barreto at bedside.
--- NOTE | 2019-12-18 12:10 | NUR ---
Left unit for CT scan of the abdomen and chest.
--- NOTE | 2019-12-18 13:00 | NUR ---
Approximately [address] scan of the abdomen and chest with patient, tolerated procedure well.
--- NOTE | 2019-12-18 15:10 | NUR ---
Oh at bedside.
--- NOTE | 2019-12-18 15:15 | NUR ---
Reported to Oh at bedside patient's current Mario catheter site has moderate amount of blood drainage, MD ordered to remove site apply pressure dressing and to notify Oh before next dialysis for new dialysis access placement. Orders performed.
[2019-12-18] MEDS: INSULIN REGULAR, HUMAN 100 UNITS/ML, 10 ML VIAL (humuLIN R) SUBCUT PRN (15:36)
--- NOTE | 2019-12-18 16:11 | NUR ---
12[address] PT TO CT SCAN. BAGGED PT SAT 99%. PT TOLERATED. Addendum: 12/18/19 at 1626 by Marly Alanis RT Amended: Links added.
--- NOTE | 2019-12-18 19:10 | NUR ---
Dropped of urine collection at lab for urinalysis as ordered by MD Barreto.
--- NOTE | 2019-12-18 19:15 | NUR ---
Opening note Received patient after report from dayslaft nurse Wendie. Sedated with Diprivan, responding to painful stimuli. Levophed drip infusing at 12 mcg/min with SBP wnl. Continue to have sand bag to right groin s/p removal of wanda as per Dr PATIÑO. Will continue to monitor patient for bleeding from puncture site in right groin and for effectiveness of sedation. Vent to ETT in place and tolerating settings.
--- NOTE | 2019-12-18 19:22 | NUR ---
Endorsed patient and endorsed report to NOC shift nurse. Patient in no acute distress. Side rails x 3 up. Call light with in reach.
[2019-12-18 19:29] LABS: BILIRUBIN,URINE NEGATIVE (NEGATIVE); BLOOD, URINE 1+ (NEGATIVE); COLOR,URINE YELLOW (YELLOW); GLUCOSE,URINE NEGATIVE (NEGATIVE); KETONES,URINE NEGATIVE (NEGATIVE); LEUKOCYTE ESTERASE ,URINE TRACE (NEGATIVE); NITRITE, URINE NEGATIVE (NEGATIVE); PH,URINE 5.5 (5.0-8.0); PROTEIN URINE 1+ (NEGATIVE); UROBILINOGEN,URINE 0.2 (0.2-1.0)
[2019-12-18 19:31] LABS: CLARITY/URINE HAZY (CLEAR)
[2019-12-18 19:42] LABS: BACTERIA,URINE MODERATE /HPF (None Seen); RBC,URINE 0-3 /HPF (0-3); WBC,URINE 0-3 /HPF (0-3)
[2019-12-18] MEDS ORDERED: SODIUM CHLORIDE IV SCH ×8 (21:00)
[2019-12-18] MEDS ORDERED: POTASSIUM CHLORIDE IV SCH ×8 (21:00)
[2019-12-18] MEDS ORDERED: [UNRECOGNIZED DRUG - OTHER] IV SCH ×8 (21:00)
[2019-12-18] MEDS ORDERED: TPN CENTRAL IV SCH ×8 (21:00)
--- NOTE | 2019-12-18 21:00 | NUR ---
TPN started As per orders TPN was started at this time at 44 ml/h.
--- NOTE | 2019-12-18 21:30 | NUR ---
Dr Becerra at bedside. No new orders received
[2019-12-19] VITALS (34 sets, daily range): BP systolic 103–156
[2019-12-19] MEDS: INSULIN REGULAR, HUMAN 100 UNITS/ML, 10 ML VIAL (humuLIN R) SUBCUT PRN ×3 (00:28→18:48)
[2019-12-19] MEDS: D5/0.45 NS 1,000 ML IV SCH ×2 (01:00→18:45)
[2019-12-19] MEDS: PROPOFOL DRIP 100 ML IV PRN ×2 (01:32→10:39)
[2019-12-19] MEDS: NOREPINEPHRINE BITARTRATE 8 MG in D5W 242 ML IV PRN ×2 (04:39→18:42)
[2019-12-19] MEDS: HEPARIN SODIUM,PORCINE 5000 UNITS/ML VIAL SUBCUT SCH ×2 (06:00→18:49)
[2019-12-19 06:22] LABS: EOSINOPHILS # (AUTO) 0.4 K/uL (0.0-0.4); EOSINOPHILS % (AUTO) 4.6 % (0.0-4.0); HEMATOCRIT 29.9 % (36-54); HEMOGLOBIN 9.9 g/dL (14.0-18.0); LYMPHOCYTES # (AUTO) 0.7 K/uL (1.0-5.5); LYMPHOCYTES % (AUTO) 7.8 % (20.5-51.5); MEAN CORPUSCULAR HEMOGLOBIN 29 pg (27-31); MEAN CORPUSCULAR HGB CONC 33 % (32-36); MEAN CORPUSCULAR VOLUME 88 fL (79.0-98.0); MONOCYTES # (AUTO) 0.9 K/uL (0.0-1.0); MONOCYTES % (AUTO) 10.9 % (1.7-9.3); NEUTROPHILS # (AUTO) 6.7 K/uL (1.8-7.7); NEUTROPHILS % (AUTO) 76.7 % (40.0-70.0); PLATELET COUNT (AUTO) 163 K/uL (130-430); RED BLOOD CELL COUNT(AUTO) 3.41 MIL/uL (4.2-6.2); RED CELL DISTRIBUTION WIDTH 15.1 % (9.0-15.0); WHITE BLOOD COUNT (AUTO) 8.7 K/uL (4.8-10.8)
[2019-12-19] MEDS: PIPERACILLIN/TAZO 2.25G/DEX-IS 50 ML IV SCH ×3 (06:26→18:47)
[2019-12-19 06:38] LABS: ALANINE AMINOTRANSFERASE 28 U/L (12-78); ALBUMIN 2.3 g/dL (3.4-4.8); ANION GAP 10 (5-15); ASPARTATE AMINOTRANSFERASE 39 U/L (10-37); CALCIUM 7.8 mg/dL (8.4-11.0); CHLORIDE 96 mmol/L (98-107); CREATININE 3.15 mg/dL (0.55-1.30); GLUCOSE 175 mg/dL (70-99); PHOSPHORUS 3.7 mg/dL (2.7-4.5); SODIUM SERUM 130 mmol/L (136-145); TOTAL BILIRUBIN 0.9 mg/dL (0.0-1.0); UREA NITROGEN, BLOOD 33 mg/dL (8-21)
--- NOTE | 2019-12-19 07:30 | NUR ---
Opening Note Received plan of care from endorsing nurse Flakito BETANCUR.
[2019-12-19 08:07] LABS: POTASSIUM 2.9 mmol/L (3.5-5.1)
--- NOTE | 2019-12-19 08:35 | NUR ---
Critical Value Spoke to Dr. Coleman regarding 2.6K. Received order to infuse via IV 20 MEQ K Codey once.
[2019-12-19] MEDS: PANTOPRAZOLE SODIUM 40 MG/VIAL (PROTONIX) IVP SCH ×2 (08:53→21:34)
[2019-12-19] MEDS ORDERED: KCL 20 mEq in 100 mL (PREMIX) 100 ML IV ONE (09:15)
--- NOTE | 2019-12-19 10:33 | NUR ---
Nutrition F/U Admitting Diagnosis: Sepsis, R/O COVID-19 Medical History Comment: PMHx includes HTN, mild dementia, ESRD per physician notes. Pt was admitted for severe hypotension, acute renal failure, GI and rectal bleeding, septic shock, acute encephalopathy, and respiratory failure per physician notes. Per Bed Huddle 12/14, pt is modified code, family declined CPR. 12/17: MD notes: +dysphagia w/ difficulty inserting OGT or NGT. Subjective Information Pt remains in ICU, w/ diet order for EN via OGT. During bed huddle, it was discussed that pt was on TPN and was confirmed by pharmMariana Coker. TPN was started on the weekend at 44ml/hr. No lipids as pt was on propofol. RD a/w RN call back for current propofol rate. RN to discontinue EN order until NGT/OGT is inserted. Current TPN support provides: 1110 kcal, 63gm protein and GIR 3.3gm CHO/kg/min. RD and pharmD agreed on goal rate of 54ml/hr, no lipids for now as pt still receives propofol. Current Diet Order/Nutrition Support: Nepro at 40ml/hr (goal rate), FWF 100ml Q6H via OGT x 3 days (active but not provided d/t failed NGT insertion.) +D50% AA8.5% at 44ml/hr, No lipids via Central line. Pertinent Medications Propofol, piperacillin/tazobactam, Heparin, Protonix, Insulin Pertinent Labs (12/18) Na 130L, K 2.9L, BG 175H, POC BG 168H, BUN 33H, CRE 3.15H COVID-19 Negative x 2 (12/13 & 12/14) Height (Feet): 6 feet Height (Inches) 6.00 inches Weight (Pounds) 129 pounds Weight (Calculated Kilograms) 58.722545 kilograms Body Mass Index 14.91 kg/m2 Skin Integrity Comment: Ludin Score: 13. Per RN note, no pressure injuries identified, +2 pitting edema to the left hand. Current % PO N/A, NPO NEW Estimated Energy Expenditure (kcals/day) Temperature: 36.56 degrees Celsius, Ve: 7.9 1477 kcal/day (PSU for critical illness on vent) NEW Estimated Protein Required (g/day) 59-88gm/day (1-1.5g/kg based on ESRD, critical illness, sepsis) Estimated Fluid Required (l/day) Fluid needs deferred to MD d/t TRE, HD. Problem/Etiology/Signs/Symptoms Inadequate enteral infusion related to unknown nasal obstruction as evidenced by unsuccessful NGT and OGT placement (*ongoing) Increased nutrient needs related to increased metabolic demands as evidenced by critical illness, sepsis (*ongoing) Expected Outcomes/Goals Monitor intake from nutrition support w/ goal of pt meeting at least 80% of estimated nutritional needs, labs trending WNL, normal GI function, and skin integrity/wt maintenance Dietitian Recommendations * Recommend: keep NPO. * Recommend: D50% AA10% at 54ml/hr, no lipids via central line. Provides: 1362 kcal, 65 gm protein, 1296ml fluid and GIR 3.8gm CHO/kg/min. Meets: 92% of estimated calorie needs and 74% of upper end of estimated protein needs. Follow Up High Risk: F/U in 2-3days
--- NOTE | 2019-12-19 10:46 | NUR ---
Dietitian Recommendations * Recommend: keep NPO. * Recommend: D50% AA10% at 54ml/hr, no lipids via central line. Provides: 1362 kcal, 65 gm protein, 1296ml fluid and GIR 3.8gm CHO/kg/min. Meets: 92% of estimated calorie needs and 74% of upper end of estimated protein needs. Please see Nutrition F/U note for details. SNF, RD
--- NOTE | 2019-12-19 19:10 | NUR ---
Closing Note Provided plan of care via sbar to receiving RN.
[2019-12-19] MEDS ORDERED: TPN CENTRAL IV SCH ×9 (21:00)
[2019-12-19] MEDS ORDERED: SODIUM CHLORIDE IV SCH ×9 (21:00)
[2019-12-19] MEDS ORDERED: POTASSIUM CHLORIDE IV SCH ×9 (21:00)
[2019-12-19] MEDS ORDERED: [UNRECOGNIZED DRUG - OTHER] IV SCH ×9 (21:00)
[2019-12-19 22:08] LABS: HEPATITIS B CORE AB, IgM Negative (Negative); HEPATITIS B SURFACE AG Negative (Negative); HEPATITIS C VIRUS AB <0.1 s/co ratio (0.0-0.9)
[2019-12-20] VITALS (36 sets, daily range): BP systolic 100–132
[2019-12-20] MEDS: INSULIN REGULAR, HUMAN 100 UNITS/ML, 10 ML VIAL (humuLIN R) SUBCUT PRN (00:47)
[2019-12-20] MEDS: PROPOFOL DRIP 100 ML IV PRN (00:49)
[2019-12-20] MEDS: PIPERACILLIN/TAZO 2.25G/DEX-IS 50 ML IV SCH ×4 (00:50→18:26)
--- NOTE | 2019-12-20 02:00 | NUR ---
CHANGE IN CAREGIVER I assumed care after 199.
[2019-12-20] MEDS: HEPARIN SODIUM,PORCINE 5000 UNITS/ML VIAL SUBCUT SCH ×2 (06:06→18:30)
[2019-12-20 06:52] LABS: BASOPHILS % (AUTO) 0.2 % (0.0-2.0); EOSINOPHILS # (AUTO) 0.4 K/uL (0.0-0.4); EOSINOPHILS % (AUTO) 4.4 % (0.0-4.0); HEMATOCRIT 26.4 % (36-54); LYMPHOCYTES # (AUTO) 0.8 K/uL (1.0-5.5); LYMPHOCYTES % (AUTO) 8.9 % (20.5-51.5); MEAN CORPUSCULAR HEMOGLOBIN 30 pg (27-31); MEAN CORPUSCULAR HGB CONC 34 % (32-36); MEAN CORPUSCULAR VOLUME 87 fL (79.0-98.0); MONOCYTES % (AUTO) 11.3 % (1.7-9.3); NEUTROPHILS # (AUTO) 6.5 K/uL (1.8-7.7); NEUTROPHILS % (AUTO) 75.2 % (40.0-70.0); PLATELET COUNT (AUTO) 180 K/uL (130-430); RED BLOOD CELL COUNT(AUTO) 3.04 MIL/uL (4.2-6.2); WHITE BLOOD COUNT (AUTO) 8.7 K/uL (4.8-10.8)
[2019-12-20 07:27] LABS: ALANINE AMINOTRANSFERASE 33 U/L (12-78); ALBUMIN 2.1 g/dL (3.4-4.8); ANION GAP 13 (5-15); ASPARTATE AMINOTRANSFERASE 39 U/L (10-37); CALCIUM 7.6 mg/dL (8.4-11.0); CHLORIDE 103 mmol/L (98-107); CREATININE 2.81 mg/dL (0.55-1.30); GLUCOSE 115 mg/dL (70-99); PHOSPHORUS 2.4 mg/dL (2.7-4.5); POTASSIUM 3.2 mmol/L (3.5-5.1); SODIUM SERUM 137 mmol/L (136-145); TOTAL BILIRUBIN 0.6 mg/dL (0.0-1.0); UREA NITROGEN, BLOOD 36 mg/dL (8-21); VANCOMYCIN,RANDOM 13.7 ug/mL
--- NOTE | 2019-12-20 07:30 | NUR ---
Opening Note Received plan of care via sbar from endorsing nurse Yomaira BETANCUR.
[2019-12-20] MEDS: PANTOPRAZOLE SODIUM 40 MG/VIAL (PROTONIX) IVP SCH ×2 (08:09→20:59)
--- NOTE | 2019-12-20 08:20 | NUR ---
Dr. Coleman at bedside. Discussed patient K at 3.2 and discussed ABG. Patient will have vent change of 35% FIO2 and be placed on CPAP once diprivan is titrated off.
[2019-12-20] MEDS ORDERED: KCL 20 mEq in 100 mL (PREMIX) 100 ML IV ONE (09:30)
--- NOTE | 2019-12-20 10:15 | NUR ---
Patient off on Diprivan. Patient with RT and RN at bedside. Patient has guerrero 2 and has spontaneous eye opening and alert. Patient now on CPAP.
--- NOTE | 2019-12-20 10:26 | NUR ---
Dr. Graham at bedside. Provided report on patient. No new orders.
--- NOTE | 2019-12-20 14:45 | NUR ---
NIF (-5) and RSBI (11.42) reported to GYPSY Rocha.
[2019-12-20 15:07] LABS: HEPATITIS A AB, IgM Negative (Negative)
--- NOTE | 2019-12-20 15:15 | NUR ---
Spoke to Dr. Coleman and reported the RSVI and NIF. Received orders to place patient back to AC 14, TV 500, FIO2 35%, Peep 5.
--- NOTE | 2019-12-20 15:55 | NUR ---
Pt. placed on pervious ventilator settings per Dr. Coleman orders. AC 14, Vt 500, 35% with +5 PEEP
[2019-12-20] MEDS ORDERED: VANCOMYCIN HCL 1,000 MG in NS 250 ML IV ONE (16:00)
[2019-12-20] MEDS: D5/0.45 NS 1,000 ML IV SCH (16:07)
[2019-12-20] MEDS: NOREPINEPHRINE BITARTRATE 8 MG in D5W 242 ML IV PRN (16:07)
--- NOTE | 2019-12-20 20:00 | NUR ---
ASLEEP, EASILY AROUSED.WITHDRAWS TO PAINFUL STIMULI.DOES NOT FOLLOW COMMANDS.NEED FOR CONTINUED USE OF RESTRAINTS IS NECESSARY TO PREVENT UNTIMELY EXTUBATION.TURNED AND REPOSITIONED FOR COMFORT.
[2019-12-20] MEDS ORDERED: TPN CENTRAL IV SCH ×11 (21:00)
[2019-12-20] MEDS ORDERED: [UNRECOGNIZED DRUG - OTHER] IV SCH ×11 (21:00)
[2019-12-20] MEDS ORDERED: POTASSIUM CHLORIDE IV SCH ×11 (21:00)
[2019-12-20] MEDS ORDERED: SODIUM CHLORIDE IV SCH ×11 (21:00)
--- NOTE | 2019-12-20 21:00 | NUR ---
PICC LINE DRESSINGS CHANGED ASEPTICALLY.NO REDNESS NOR DRAINAGE NOTED.
[2019-12-21] VITALS (34 sets, daily range): BP systolic 89–132
--- NOTE | 2019-12-21 | NUR ---
LEVOPHED DRIP OFF AT THIS TIME.
[2019-12-21] MEDS: PIPERACILLIN/TAZO 2.25G/DEX-IS 50 ML IV SCH ×4 (00:15→17:27)
--- NOTE | 2019-12-21 04:00 | NUR ---
Transfer of care Received report from Odette BETANCUR using SBAR approach.
--- NOTE | 2019-12-21 04:20 | NUR ---
ASSESSMENT Patient is asleep but woke up when i did my assessment. Patient is on the ventilator. Vent settings AC 14, TV 500, Fi02 35 and Peep of 5. Does not follow commands. Restraints are still in place to prevent patient from withdrawing the tube. Bed locked in lowest position. Safety precautions in place. Will continue to monitor.
--- NOTE | 2019-12-21 04:50 | NUR ---
CHG Cleaned the patient and did CHG. Patient tolerated well. No signs of distress. Will continue to monitor.
[2019-12-21] MEDS: HEPARIN SODIUM,PORCINE 5000 UNITS/ML VIAL SUBCUT SCH ×2 (05:04→17:30)
--- NOTE | 2019-12-21 07:25 | NUR ---
Closing Note Gave report to AM nurse using SBAR approach.
[2019-12-21 07:31] LABS: ALANINE AMINOTRANSFERASE 41 U/L (12-78); ANION GAP 11 (5-15); ASPARTATE AMINOTRANSFERASE 50 U/L (10-37); CALCIUM 7.9 mg/dL (8.4-11.0); CHLORIDE 107 mmol/L (98-107); CREATININE 2.59 mg/dL (0.55-1.30); GLUCOSE 132 mg/dL (70-99); PHOSPHORUS 1.8 mg/dL (2.7-4.5); POTASSIUM 3.6 mmol/L (3.5-5.1); SODIUM SERUM 136 mmol/L (136-145); TOTAL BILIRUBIN 0.6 mg/dL (0.0-1.0); UREA NITROGEN, BLOOD 39 mg/dL (8-21)
--- NOTE | 2019-12-21 08:00 | NUR ---
Opening Notes Patient received awake in bed but does not follow commands. Patient connected to monitoring engineer with settings AC 14, FiO2 35%, tidal volume 500, PEEP 5 with no signs of distress noted. Patient with BENJAMÍN PICC receiving fluids and TPN. Patient with bautista catheter draining urine. Restraints in place. Safety precautions enforced.
--- NOTE | 2019-12-21 08:30 | NUR ---
RT NOTES Dr Coleman changed vent settings to CPAP 5 PS 10, no additional order given per RT Marly.
[2019-12-21] MEDS: PANTOPRAZOLE SODIUM 40 MG/VIAL (PROTONIX) IVP SCH ×2 (09:23→21:40)
[2019-12-21] MEDS ORDERED: FUROSEMIDE 20 MG/2 ML VIAL IVP ONE (10:15)
--- NOTE | 2019-12-21 12:00 | NUR ---
RN Rounds Patient resting in bed at this time with no signs of distress noted. Safety precaution enforced.
[2019-12-21] MEDS: D5/0.45 NS 1,000 ML IV SCH (13:00)
--- NOTE | 2019-12-21 13:34 | NUR ---
Nutrition F/U Admitting Diagnosis: Sepsis, R/O COVID-19 Medical History Comment: PMHx includes HTN, mild dementia, ESRD per physician notes. Pt was admitted for severe hypotension, acute renal failure, GI and rectal bleeding, septic shock, acute encephalopathy, and respiratory failure per physician notes. 12/20: notes, dialysis cath has been removed, renal function slowly improving and may not need a replacement of dialysis catheter. Second attempt to insert another tube through oral cavity was unsuccessful and ends up bringing up excess amount of secretion. Once able to wean off the vent, plan for EGD and GT placement in the future. Subjective Information Pt remains in ICU. RD s/w pt's primary RN earlier and she reported that pt has been off propofol since yesterday. Pt is now on NPO w/ TPN. RD s/w pharmD and rec to start lipid. PharmD to start lipids tomorrow. Monitor TG lab values. Current Diet Order/Nutrition Support: NPO +D50% AA10% at 54ml/hr, No lipids via Central line. Current TPN provides: 1362 kcal, 65gm protein and GIR 3.8 gm CHO/kg/min. Meets: 83% of estimated calorie needs and 74% of upper end of estimated protein needs. Pertinent Medications piperacillin/tazobactam, Heparin, Protonix, Insulin Pertinent Labs (12/20) Na 136 WNL, K 3.6 WNL, BG 132H, POC BG 128H, BUN 39H, CRE 2.59H, 12/17 TG 147 WNL COVID-19 Negative x 2 (12/13 & 12/14) Height (Feet): 6 feet Height (Inches) 6.00 inches Weight (Pounds) 129 pounds Weight (Calculated Kilograms) 58.055614 kilograms Body Mass Index 14.91 kg/m2 Skin Integrity Comment: Ludin Score: 13. Per RN note, no pressure injuries identified, +2 pitting edema to the left hand. Current % PO N/A, NPO NEW Estimated Energy Expenditure (kcals/day) Temperature: 36.83 degrees Celsius, Ve: 12 1477 kcal/day (PSU for critical illness on vent) Estimated Protein Required (g/day) 59-88gm/day (1-1.5g/kg based on ESRD, critical illness, sepsis) Estimated Fluid Required (l/day) Fluid needs deferred to MD d/t TRE, HD. Problem/Etiology/Signs/Symptoms Inadequate enteral infusion related to unknown nasal obstruction as evidenced by unsuccessful NGT and OGT placement (*ongoing) Increased nutrient needs related to increased metabolic demands as evidenced by critical illness, sepsis (*ongoing) Expected Outcomes/Goals Monitor intake from nutrition support w/ goal of pt meeting at least 80% of estimated nutritional needs, labs trending WNL, normal GI function, and skin integrity/wt maintenance Dietitian Recommendations * Recommend: keep NPO. * Recommend: D50% AA10% at 54ml/hr (goal rate), IL 20% at 5ml/hr via central line. Provides: 1602 kcal, 65 gm protein, 1416ml fluid and GIR 3.8gm CHO/kg/min. Meets: 97% of estimated calorie needs and 74% of upper end of estimated protein needs. Follow Up High Risk: F/U in 2-3days
--- NOTE | 2019-12-21 13:46 | NUR ---
Dietitian Recommendations * Recommend: keep NPO. * Recommend: D50% AA10% at 54ml/hr (goal rate), IL 20% at 5ml/hr via central line. Provides: 1602 kcal, 65 gm protein, 1416ml fluid and GIR 3.8gm CHO/kg/min. Meets: 97% of estimated calorie needs and 74% of upper end of estimated protein needs. RD s/w pharmD @3286 about rec. Please see Nutrition F/U note for details. JAYNE TRIANA
--- NOTE | 2019-12-21 16:00 | NUR ---
RN Rounds Patient resting in bed with no signs of distress at this time. Safety precautions enforced.
--- NOTE | 2019-12-21 19:15 | NUR ---
change of shift.pt.presents eet/og-tube inplace.pt.presents vent:c-pap mode.pt.tolerating the c-pap.pt.presents picc line;location:rt.bicept.arm:intact; patent;iv fluids/tpn infusing.pt.presents bautista cath;intact;patent urine content present.pt.presents restraints;wrist;bilateral. in place.affect; restless.loc;confused.call light w/in reach of the pt.pt.presents no isolation;standard status.
--- NOTE | 2019-12-21 19:35 | NUR ---
Closing Notes Patient endorsed to manufacturing supervisor 2nd shift RN using SBAR format. No signs of distress noted.
--- NOTE | 2019-12-21 20:00 | NUR ---
pt.assessed.v/s assessed;values w/in normal limits.eet/og tube intact;patent:vent;c-pap setting assessed.pt.tolerating the c-pap mode. fio2%=35%,peep:5,pressure support;10.picc line intact;patent iv fluids/tpn infusing.bautista cath intact;patent urine content present. pt.assessed for cleanliness.pt.repositioned.call light placed w/in reach of the pt.
[2019-12-21] MEDS ORDERED: TPN CENTRAL IV SCH ×12 (21:00)
[2019-12-21] MEDS ORDERED: [UNRECOGNIZED DRUG - OTHER] IV SCH ×12 (21:00)
[2019-12-21] MEDS ORDERED: POTASSIUM CHLORIDE IV SCH ×12 (21:00)
[2019-12-21] MEDS ORDERED: SODIUM CHLORIDE IV SCH ×12 (21:00)
--- NOTE | 2019-12-21 21:00 | NUR ---
2100p medications administered. Addendum: 12/22/19 at 0202 by Riki Villarreal RN i have attended to the administration:tpn;changed tubing.
--- NOTE | 2019-12-21 22:00 | NUR ---
pt.assessed.v/s assessed.values w/in normal limits.eet/og tube in place.i have attended to the oral care/suction.vent/c-pap assessed. picc line intact;patent iv fluids/tpn infusing.bautista cath intact;patent:urine content present.pt.assessed for cleanliness.pt.repositioned.general status stable.respiratory status stable.restraints in place;skin/circulation w/in normal limits. call light placed w/in reach of the pt.i have returned telephone call to pt's sister.i have provided pt's update/data w/in nsg parameters.
[2019-12-22] VITALS (31 sets, daily range): BP systolic 96–140
--- NOTE | 2019-12-22 | NUR ---
pt.assessed.v/s assessed;values w/in normal limits.eet/og-tube assessed in place.vent;c-pap mode assessed.i have attended to the oral care/suction.picc line intact;patent iv fluids/tpn infusing.bautista cath intact;patent urine content present.pt.assessed for cleanliness.pt.repositioned.restraints in place;skin/circulation assessed w/in normal limits.call light placed w/in reach of the pt. Addendum: 12/22/19 at 0153 by Riki Villarreal RN i have assessed the blood glucose;value:124mg/dl.
[2019-12-22] MEDS: PIPERACILLIN/TAZO 2.25G/DEX-IS 50 ML IV SCH ×5 (00:17→23:24)
--- NOTE | 2019-12-22 02:00 | NUR ---
pt.assessed.v/s assessed;values w/in normal limits.eet/og tube intact/patent.vent /c-pap assessed.i have attended to the oral care/suction. picc line intact;patent iv fluids/tpn infusing.bautista cath intact/patent:urine content present.pt.assessed for cleanliness.pt.repositioned. call placed w/in reach of the pt.
--- NOTE | 2019-12-22 04:00 | NUR ---
pt.assessed.v/s assessed values w/in normal limits.vent/c-pap assessed pt.tolerating vent/c-pap settings.i have attended to the oral care/suction.picc line intact;patent iv fluids/tpn infusing.bautista cath intact;patent urine content pt.repositioned. pt.assessed for cleanliness. restraints in place skin/circulation w/in normal limits.call light placed w/in reach of the pt.
[2019-12-22] MEDS: HEPARIN SODIUM,PORCINE 5000 UNITS/ML VIAL SUBCUT SCH ×2 (05:05→18:32)
[2019-12-22 05:57] LABS: BASOPHILS % (AUTO) 0.1 % (0.0-2.0); EOSINOPHILS # (AUTO) 0.3 K/uL (0.0-0.4); EOSINOPHILS % (AUTO) 3.6 % (0.0-4.0); HEMATOCRIT 22.8 % (36-54); HEMOGLOBIN 7.7 g/dL (14.0-18.0); LYMPHOCYTES # (AUTO) 1.2 K/uL (1.0-5.5); MEAN CORPUSCULAR HEMOGLOBIN 29 pg (27-31); MEAN CORPUSCULAR HGB CONC 34 % (32-36); MEAN CORPUSCULAR VOLUME 87 fL (79.0-98.0); MONOCYTES # (AUTO) 1.1 K/uL (0.0-1.0); MONOCYTES % (AUTO) 12.8 % (1.7-9.3); NEUTROPHILS # (AUTO) 6.3 K/uL (1.8-7.7); NEUTROPHILS % (AUTO) 70.5 % (40.0-70.0); PLATELET COUNT (AUTO) 264 K/uL (130-430); RED CELL DISTRIBUTION WIDTH 15.6 % (9.0-15.0); WHITE BLOOD COUNT (AUTO) 8.9 K/uL (4.8-10.8)
--- NOTE | 2019-12-22 06:00 | NUR ---
pt.assessed.v/s assessed;values w/in normal limits.pt.tolerating c-pap mode.i have attended to the oral care/suction. picc line intact;patent iv fluids/tpn infusing.i have assessed the blood glucose:value;134mg/dl.bautista cath intact;patent urine content present. pt.assessed for cleanliness.pt.repositioned.restraints in place;skin/circulation w/in normal limits.call light placed w/in reach of the pt.
[2019-12-22 06:32] LABS: ALANINE AMINOTRANSFERASE 52 U/L (12-78); ALBUMIN 1.9 g/dL (3.4-4.8); ANION GAP 10 (5-15); ASPARTATE AMINOTRANSFERASE 54 U/L (10-37); CALCIUM 8.2 mg/dL (8.4-11.0); CHLORIDE 110 mmol/L (98-107); GLUCOSE 141 mg/dL (70-99); PHOSPHORUS 2.4 mg/dL (2.7-4.5); POTASSIUM 3.5 mmol/L (3.5-5.1); SODIUM SERUM 137 mmol/L (136-145); TOTAL BILIRUBIN 0.5 mg/dL (0.0-1.0); TRIGLYCERIDES 86 mg/dL (30-150); UREA NITROGEN, BLOOD 47 mg/dL (8-21); VANCOMYCIN,RANDOM 18.3 ug/mL
--- NOTE | 2019-12-22 08:00 | NUR ---
Opening Notes Patient received resting in bed at this time. Patient connected to potline monitor NSR. Patient intubated with settings CPAP 5, pressure support 35%, and PEEP 5 with no signs of distress noted. Patient with BENJAMÍN PICC receiving fluids and TPN for nutrition. Patient has a bautista catheter draining urine. Safety precautions enforced.
[2019-12-22] MEDS: D5/0.45 NS 1,000 ML IV SCH (09:00)
[2019-12-22] MEDS: PANTOPRAZOLE SODIUM 40 MG/VIAL (PROTONIX) IVP SCH ×2 (09:20→21:59)
--- NOTE | 2019-12-22 12:00 | NUR ---
RN Rounds Patient awake and resting in bed. Patient not following commands at this time. Patient orally suctioned with moderate secretions out. Patient in no signs of distress at this time. Safety precautions enforced.
--- NOTE | 2019-12-22 16:30 | NUR ---
Blood Transfusion Patient receiving 1 unit PRBC at this time. Patient tolerating well. No signs of distress noted.
--- NOTE | 2019-12-22 18:11 | NUR ---
1745 PLACED PT BACK ON ORIGINAL SETTINGS AC14 500+5.35 Addendum: 12/22/19 at 1813 by Marly Alanis RT Amended: Links added.
--- NOTE | 2019-12-22 19:29 | NUR ---
Closing Notes Endorsed to shift manager RN using SBAR format. Patient in no signs of distress at this time.
--- NOTE | 2019-12-22 19:40 | NUR ---
Opening note Received patient after report from daysndft nurse. Vent to ETT in place tolerating settings. BENJAMÍN picc line present and patent. Orders noted to start lipids at 2100; currently infusing TPN. Delgado catheter in place and draining to gravity. will continue to monitor patient as per unit protocol.
--- NOTE | 2019-12-22 20:00 | NUR ---
Blood transfusion completed; no adverse reaction noted.
[2019-12-22] MEDS ORDERED: [UNRECOGNIZED DRUG - OTHER] IV SCH ×12 (21:00)
[2019-12-22] MEDS ORDERED: TPN CENTRAL IV SCH ×12 (21:00)
[2019-12-22] MEDS ORDERED: SODIUM CHLORIDE IV SCH ×12 (21:00)
[2019-12-22] MEDS ORDERED: POTASSIUM CHLORIDE IV SCH ×12 (21:00)
--- NOTE | 2019-12-22 21:00 | NUR ---
started on Lipids as per pharmacy
[2019-12-22] MEDS: FAT EMULSIONS 250 ML IV SCH (22:00)
--- NOTE | 2019-12-22 22:30 | NUR ---
Received order to start ferrilicit IV; medication obtained from nursing animal trainer supervisor and infusing. Will monitor patient for adverse reaction to ferrilicit during infusion.
[2019-12-22] MEDS: SOD FERRIC GLUC COMPLEX/SUC 125 MG in NS 100 ML IV SCH (22:57)
[2019-12-22] MEDS ORDERED: SOD FERRIC GLUC COMPLEX/SUC 62.5 MG/5 ML VIAL (FERRLECIT) IV ONE (23:01)
[2019-12-23] VITALS (27 sets, daily range): BP systolic 97–142
[2019-12-23] MEDS: D5/0.45 NS 1,000 ML IV SCH (05:00)
[2019-12-23 05:54] LABS: BASOPHILS % (AUTO) 0.3 % (0.0-2.0); EOSINOPHILS # (AUTO) 0.3 K/uL (0.0-0.4); EOSINOPHILS % (AUTO) 3.9 % (0.0-4.0); HEMATOCRIT 27.2 % (36-54); HEMOGLOBIN 9.4 g/dL (14.0-18.0); LYMPHOCYTES # (AUTO) 1.3 K/uL (1.0-5.5); LYMPHOCYTES % (AUTO) 14.8 % (20.5-51.5); MEAN CORPUSCULAR HEMOGLOBIN 30 pg (27-31); MEAN CORPUSCULAR HGB CONC 35 % (32-36); MEAN CORPUSCULAR VOLUME 87 fL (79.0-98.0); MONOCYTES # (AUTO) 0.8 K/uL (0.0-1.0); MONOCYTES % (AUTO) 8.4 % (1.7-9.3); NEUTROPHILS # (AUTO) 6.5 K/uL (1.8-7.7); NEUTROPHILS % (AUTO) 72.6 % (40.0-70.0); PLATELET COUNT (AUTO) 278 K/uL (130-430); RED BLOOD CELL COUNT(AUTO) 3.14 MIL/uL (4.2-6.2); RED CELL DISTRIBUTION WIDTH 15.4 % (9.0-15.0)
[2019-12-23] MEDS: PIPERACILLIN/TAZO 2.25G/DEX-IS 50 ML IV SCH ×4 (06:11→23:22)
[2019-12-23 06:19] LABS: ALANINE AMINOTRANSFERASE 45 U/L (12-78); ALBUMIN 1.8 g/dL (3.4-4.8); ANION GAP 12 (5-15); ASPARTATE AMINOTRANSFERASE 44 U/L (10-37); CALCIUM 8.1 mg/dL (8.4-11.0); CHLORIDE 107 mmol/L (98-107); CREATININE 2.49 mg/dL (0.55-1.30); GLUCOSE 127 mg/dL (70-99); PHOSPHORUS 2.8 mg/dL (2.7-4.5); POTASSIUM 3.5 mmol/L (3.5-5.1); SODIUM SERUM 137 mmol/L (136-145); TOTAL BILIRUBIN 0.7 mg/dL (0.0-1.0); UREA NITROGEN, BLOOD 47 mg/dL (8-21)
--- NOTE | 2019-12-23 07:30 | NUR ---
Opening Note Patient report received via SBAR from endorsing RN
[2019-12-23] MEDS: PANTOPRAZOLE SODIUM 40 MG/VIAL (PROTONIX) IVP SCH ×2 (08:12→20:17)
--- NOTE | 2019-12-23 09:00 | NUR ---
Round Dr. Coleman in to see patient, physician entered orders
--- NOTE | 2019-12-23 09:10 | NUR ---
0855 CHANGED VENT SETTINGS TO CPAP5, PS8 BY MD AMEZCUA. 0910 WEANING PARAMETERS RSBI 36, NIF -17 CM H2O, VC 316 ML.
--- NOTE | 2019-12-23 09:15 | NUR ---
Round Dr. Banuelos in to see patient, no new orders
--- NOTE | 2019-12-23 10:20 | NUR ---
MD Call Dr. Coleman contacted about ABG and weening results. New orders entered
--- NOTE | 2019-12-23 11:40 | NUR ---
1140 EXTUBATED PT PER MD AMEZCUA. PLACED NC 3LPM, HR 94, SPO2 97%. WILL CONTINUE TO MONITOR PT.
--- NOTE | 2019-12-23 11:45 | NUR ---
Nursing Note Patient extubated by RT and put on 3L oxygen via NC. Patient's saturation is at 97%.
[2019-12-23] MEDS ORDERED: IPRATROPIUM/ALBUTEROL SULFATE 3 ML AMPUL.NEB (DUONEB) INH ONE (12:00)
--- NOTE | 2019-12-23 12:00 | NUR ---
Round Dr. Graham in to see patient, no new orders
[2019-12-23] MEDS: IPRATROPIUM/ALBUTEROL SULFATE 3 ML AMPUL.NEB (DUONEB) INH SCH ×3 (15:15→23:19)
[2019-12-23] MEDS ORDERED: VANCOMYCIN HCL 1,000 MG in NS 250 ML IV SCH (16:00)
--- NOTE | 2019-12-23 17:00 | NUR ---
Nursing Note Patient had small BM, patient cleaned, linens changed, wound care performed. Patient tolerated well
--- NOTE | 2019-12-23 19:15 | NUR ---
Closing Note Patient report given via SBAR to nightshift RN
--- NOTE | 2019-12-23 19:20 | NUR ---
Opening Note Received report from AM nurse using SBAR approach.
[2019-12-23] MEDS: FAT EMULSIONS 250 ML IV SCH (20:13)
--- NOTE | 2019-12-23 20:15 | NUR ---
Assessment Patient is resting in bed. Patient is suctioned with moderate amount of secretions out. Patient is tolerating 3 L Nasal Cannula. BENJAMÍN picc line present and patent. Delgado catheter in place and draining to gravity. Bed locked and in lowest position. Safety protocols in place. will continue to monitor patient as per unit protocol.
[2019-12-23] MEDS: SOD FERRIC GLUC COMPLEX/SUC 125 MG in NS 100 ML IV SCH (20:16)
[2019-12-23] MEDS ORDERED: SODIUM CHLORIDE IV SCH ×12 (21:00)
[2019-12-23] MEDS ORDERED: POTASSIUM CHLORIDE IV SCH ×12 (21:00)
[2019-12-23] MEDS ORDERED: [UNRECOGNIZED DRUG - OTHER] IV SCH ×12 (21:00)
[2019-12-23] MEDS ORDERED: TPN CENTRAL IV SCH ×12 (21:00)
[2019-12-24] VITALS (14 sets, daily range): BP systolic 120–144
[2019-12-24] MEDS: D5/0.45 NS 1,000 ML IV SCH ×3 (00:29→21:15)
[2019-12-24] MEDS: IPRATROPIUM/ALBUTEROL SULFATE 3 ML AMPUL.NEB (DUONEB) INH SCH ×7 (03:29→23:30)
--- NOTE | 2019-12-24 04:20 | NUR ---
Nursing Note Gave patient a partial bed bath and cleansed with CHG wipes. Patient had a bowel movement. Cleaned patient with wipes, linens changed, and put dressing on wound. Patient tolerated well with no distress noted. Patient is on 3L nasal cannula and is tolerating well.
[2019-12-24] MEDS: PIPERACILLIN/TAZO 2.25G/DEX-IS 50 ML IV SCH ×4 (05:26→23:33)
[2019-12-24 06:24] LABS: ALANINE AMINOTRANSFERASE 40 U/L (12-78); ALBUMIN 1.8 g/dL (3.4-4.8); ANION GAP 10 (5-15); ASPARTATE AMINOTRANSFERASE 37 U/L (10-37); CHLORIDE 109 mmol/L (98-107); GLUCOSE 115 mg/dL (70-99); PHOSPHORUS 2.6 mg/dL (2.7-4.5); POTASSIUM 3.8 mmol/L (3.5-5.1); SODIUM SERUM 142 mmol/L (136-145); TOTAL BILIRUBIN 0.4 mg/dL (0.0-1.0); UREA NITROGEN, BLOOD 44 mg/dL (8-21)
--- NOTE | 2019-12-24 07:19 | NUR ---
Closing note Endorsed report to AM nurse using SBAR approach.
--- NOTE | 2019-12-24 07:22 | NUR ---
Opening Note Patient report received via SBAR from endorsing RN
[2019-12-24] MEDS: PANTOPRAZOLE SODIUM 40 MG/VIAL (PROTONIX) IVP SCH ×2 (08:06→21:10)
--- NOTE | 2019-12-24 08:30 | NUR ---
Round Dr. Coleman in to see patient, new orders entered
[2019-12-24] MEDS ORDERED: METOPROLOL TARTRATE 5 MG/5 ML VIAL IVP PRN (09:30)
--- NOTE | 2019-12-24 09:43 | NUR ---
SWALLOW/ORAL EVAL PROFESSION[employer]CH [employer] CALLED AND LEFT A VOCEMAIL WITH SANTIAGO FOR A SWALLOW EVAL.
--- NOTE | 2019-12-24 10:17 | NUR ---
PAGED PAGED NAVA NEVAREZ AT [phone] SPOKE WITH BRIDGER.
--- NOTE | 2019-12-24 11:35 | NUR ---
PAGED PAGED CASANDRA LEWIS AT [phone] SPOKE WITH LIZA.
--- NOTE | 2019-12-24 11:45 | NUR ---
Round Dr. Martin in to see patient, physician okay with transfer to Telemetry. Patient being monitored on Tele status
--- NOTE | 2019-12-24 12:00 | NUR ---
Nursing Note Patient pulled up in bed and repositioned. Patient tolerated well
--- NOTE | 2019-12-24 12:20 | NUR ---
Round Dr. Alas in to see patient, no new orders
--- NOTE | 2019-12-24 12:23 | NUR ---
CONSULTATION PAGED PRIORITY: ROUTINE REASON FOR CONSULTATION?:CVA WAS CONSULT CALLED:Y PERSON WHO WAS NOTIFIED:TEXT MESSAGED ARTIS ASENCIO CONSULTING PHYSICIAN:ATRIS ASENCIO [employer] SPECIALTY:NEURO [employer] PHONE NUMBER:[phone] REQUESTING PHYSICIAN:NEIL LEWIS
--- NOTE | 2019-12-24 13:04 | NUR ---
S.T. SWALLOW EVAL SWALLOW EVAL COMPLETED. 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 PT IS AT RISK FOR ASPIRATION. REC: CONTINUE NPO - TPN. VIDEOFLUOROSCOPIC SWALLOW STUDY. NURSE MEGHNA NOTIFIED.
--- NOTE | 2019-12-24 13:52 | NUR ---
Nutrition F/U Admitting Diagnosis: Sepsis, R/O COVID-19 Medical History Comment: PMHx includes HTN, mild dementia, ESRD per physician notes. Pt was admitted for severe hypotension, acute renal failure, GI and rectal bleeding, septic shock, acute encephalopathy, and respiratory failure per physician notes. 12/20: MD notes, dialysis cath has been removed, renal function slowly improving and may not need a replacement of dialysis catheter. Second attempt to insert another tube through oral cavity was unsuccessful and ends up bringing up excess amount of secretion. Once able to wean off the vent, plan for EGD and GT placement in the future. Subjective Information Pt remains in ICU and was extubated yesterday 12/22. RD s/w pt's primary Swallow eval completed today 12/23, pt found to be at risk for aspiration. Speech rec continue NPO, TPN order. Monitor TG lab values. Current Diet Order/Nutrition Support: NPO +D50% AA10% at 54ml/hr, No lipids via Central line. Current TPN provides: 1362 kcal, 65gm protein and GIR 3.8 gm CHO/kg/min. Meets: 83% of estimated calorie needs and 74% of upper end of estimated protein needs. Pertinent Medications piperacillin/tazobactam, Heparin, Protonix, Insulin Pertinent Labs (12/23) BG 115H, POC BG 118H, BUN 44H, CRE 2.1H COVID-19 Negative x 2 (12/13 & 12/14) Height (Feet): 6 feet Height (Inches) 6.00 inches Weight (Pounds) 129 pounds Weight (Calculated Kilograms) 58.354376 kilograms Body Mass Index 14.91 kg/m2 Skin Integrity Comment: Ludin Score: 14 (Improved) Per RN note, no pressure injuries identified, +2 pitting edema to the left hand. Current % PO N/A, NPO NEW Estimated Energy Expenditure (kcals/day) Temperature: 36.83 degrees Celsius, Ve: 12 1477 kcal/day (PSU for critical illness on vent) Estimated Protein Required (g/day) 59-88gm/day (1-1.5g/kg based on ESRD, critical illness, sepsis) Estimated Fluid Required (l/day) Fluid needs deferred to MD d/t TRE, HD. Problem/Etiology/Signs/Symptoms Inadequate enteral infusion related to unknown nasal obstruction as evidenced by unsuccessful NGT and OGT placement (*ongoing) Increased nutrient needs related to increased metabolic demands as evidenced by critical illness, sepsis (*ongoing) Expected Outcomes/Goals Monitor intake from nutrition support w/ goal of pt meeting at least 80% of estimated nutritional needs, labs trending WNL, normal GI function, and skin integrity/wt maintenance Dietitian Recommendations * Recommend: keep NPO. * Recommend: D50% AA10% at 54ml/hr (goal rate), [place] 20% at 5ml/hr via central line. Provides: 1602 kcal, 65 gm protein, 1416ml fluid and GIR 3.8gm CHO/kg/min. Meets: 97% of estimated calorie needs and 74% of upper end of estimated protein needs. Follow Up High Risk: F/U in 2-3days
--- NOTE | 2019-12-24 13:55 | NUR ---
Nursing Note Patient had small BM. Patient cleaned, linens changed, wound care performed
--- NOTE | 2019-12-24 13:56 | NUR ---
Dietitian Recommendations * Recommend: keep NPO. * Recommend: D50% AA10% at 54ml/hr (goal rate), [place] 20% at 5ml/hr via central line. Provides: 1602 kcal, 65 gm protein, 1416ml fluid and GIR 3.8gm CHO/kg/min. Meets: 97% of estimated calorie needs and 74% of upper end of estimated protein needs. Please see nutrition follow-up for details. SS,RD
--- NOTE | 2019-12-24 14:15 | NUR ---
PATIENT TRANSFERRED Patient transferred to Telemetry room 113B as per MD, patient accompanied by ACLS certified RN and attached to alarm security or surveillance monitor. Patient belongings and medications sent with patient. Patient report given to GYPSY Sandoval via SBAR communication
--- NOTE | 2019-12-24 14:20 | NUR ---
PATIENT RECEIVED FROM ICU. OPEN EYES, TRACK OCCASIONALLY, BUT NONVERBAL. F/C IS INTACT. CALL LIGHT IS IN PLACE, BED LOCKED AT THE LOWEST POSITION, WILL CONTINUE TO MONITOR.
--- NOTE | 2019-12-24 16:20 | NUR ---
patient is resting, no signs of distress noted.
--- NOTE | 2019-12-24 18:10 | NUR ---
BS 122. No coverage needed.
--- NOTE | 2019-12-24 19:30 | NUR ---
Initial Notes: Received report from vinny RN. No acute distress. Even, nonlabored breathing on 3L nasal cannula. Right upper arm PICC line dress clean, dry, and intact. Receiving TPN, Lipids, and IV fluids as ordered. Delgado catheter is draining to yellow, clear urine to gravity. Bed is at lowest position, locked. Bed alarm is on. Side rails up x3. Call light is with patient. Safety and fall precautions in place. Will continue to monitor.
[2019-12-24] MEDS ORDERED: TPN CENTRAL IV SCH ×11 (21:00)
[2019-12-24] MEDS ORDERED: SODIUM ACETATE IV SCH ×11 (21:00)
[2019-12-24] MEDS ORDERED: [UNRECOGNIZED DRUG - OTHER] IV SCH ×11 (21:00)
[2019-12-24] MEDS ORDERED: POTASSIUM ACETATE IV SCH ×11 (21:00)
[2019-12-24] MEDS: SOD FERRIC GLUC COMPLEX/SUC 125 MG in NS 100 ML IV SCH (21:10)
[2019-12-24] MEDS: FAT EMULSIONS 250 ML IV SCH (21:12)
--- NOTE | 2019-12-24 23:36 | NUR ---
Blood Sugar: Patient's blood sugar is 106. Sliding scale regular insulin not indicated.
[2019-12-25 00:37] VITALS: BP_SYST 132
--- NOTE | 2019-12-25 02:00 | NUR ---
Rounds: Patient is awake in bed. No acute distress. Even, nonlabored breathing on 3L nasal cannula. PICC line dressing is patent, dry, and intact. TPN, lipids, and IV fluids are infusing well. Delgado is draining to gravity. Oral suctioning provided. Patient tolerated well. Call light is with patient. Safety and fall precautions in place. Will continue to monitor.
[2019-12-25] MEDS: IPRATROPIUM/ALBUTEROL SULFATE 3 ML AMPUL.NEB (DUONEB) INH SCH ×6 (03:30→22:58)
--- NOTE | 2019-12-25 04:50 | NUR ---
Rounds: Patient is in bed sleeping. No acute distress. Even, nonlabored breathing. Patient removed nasal cannula, SaO2 = 95% on room air. Patient tolerating well. TPN, Lipids, and IV fluids are infusing well. Delgado is draining to gravity. Call light is with patient. Safety and fall precautions. Will continue to monitor.
[2019-12-25] MEDS: PIPERACILLIN/TAZO 2.25G/DEX-IS 50 ML IV SCH ×4 (05:17→23:34)
--- NOTE | 2019-12-25 06:36 | NUR ---
Closing Notes: Patient is in bed sleeping. No signs of acute distress. Even, nonlabored breathing on room air SaO2 = 98%. PICC line dressing is dry, patent, and intact. PICC line is infusing TPN, Lipids, and IV fluids well. Delgado is draining yellow, clear urine to gravity. Bed is locked at lowest position. Bed alarm is on. Side rails up x3. All needs met. Call light is with patient. Safety and fall precautions are in place. Will endorse care to dayshift RN.
[2019-12-25 06:56] LABS: BASOPHILS % (AUTO) 0.2 % (0.0-2.0); EOSINOPHILS # (AUTO) 0.2 K/uL (0.0-0.4); HEMOGLOBIN 9.1 g/dL (14.0-18.0); LYMPHOCYTES # (AUTO) 1.4 K/uL (1.0-5.5); LYMPHOCYTES % (AUTO) 14.6 % (20.5-51.5); MEAN CORPUSCULAR HEMOGLOBIN 29 pg (27-31); MEAN CORPUSCULAR HGB CONC 34 % (32-36); MEAN CORPUSCULAR VOLUME 87 fL (79.0-98.0); MONOCYTES % (AUTO) 9.9 % (1.7-9.3); NEUTROPHILS # (AUTO) 7.2 K/uL (1.8-7.7); NEUTROPHILS % (AUTO) 73.3 % (40.0-70.0); PLATELET COUNT (AUTO) 341 K/uL (130-430); RED BLOOD CELL COUNT(AUTO) 3.12 MIL/uL (4.2-6.2); RED CELL DISTRIBUTION WIDTH 15.8 % (9.0-15.0); WHITE BLOOD COUNT (AUTO) 9.9 K/uL (4.8-10.8)
[2019-12-25 07:22] VITALS: BP_SYST 143
[2019-12-25 07:23] LABS: ALANINE AMINOTRANSFERASE 37 U/L (12-78); ALBUMIN 1.9 g/dL (3.4-4.8); ANION GAP 10 (5-15); ASPARTATE AMINOTRANSFERASE 40 U/L (10-37); CALCIUM 8.2 mg/dL (8.4-11.0); CHLORIDE 108 mmol/L (98-107); CREATININE 1.97 mg/dL (0.55-1.30); GLUCOSE 124 mg/dL (70-99); PHOSPHORUS 3.4 mg/dL (2.7-4.5); POTASSIUM 4.1 mmol/L (3.5-5.1); SODIUM SERUM 142 mmol/L (136-145); TOTAL BILIRUBIN 0.7 mg/dL (0.0-1.0); UREA NITROGEN, BLOOD 42 mg/dL (8-21)
--- NOTE | 2019-12-25 07:38 | NUR ---
AM rounds: Patient is asleep, snoring. Breathing is non labored, with O2 @ 2 li/min via nasal cannula, saturation is 97%. Right upper arm PICC line is intact, dressing is dry, clean and intact. TPN at 54 cc/hr, Lipids at 5 cc/hr and D51/2 NS at 50 cc/hr infusing via PICC line. Delgado catheter with clear yellow, clear urine to gravity. Bed is at lowest position, locked. Bed alarm is on. Side rails up x3. Call light within reach..
[2019-12-25] MEDS: PANTOPRAZOLE SODIUM 40 MG/VIAL (PROTONIX) IVP SCH ×2 (08:56→21:00)
--- NOTE | 2019-12-25 11:30 | NUR ---
rounds: Seen By Dr. Martin, New order noted. Addendum: 12/25/19 at 1835 by Lilian Church RN MD is aware of patient's tachypnea.
[2019-12-25 12:28] VITALS: BP_SYST 117
--- NOTE | 2019-12-25 14:30 | NUR ---
Rounds: Patient noted trying to cough up phlegm. Attempted to suction with gertrudekauer but patient pushed nurse's hand away.
[2019-12-25 16:50] VITALS: BP_SYST 131
[2019-12-25] MEDS: D5/0.45 NS 1,000 ML IV SCH (17:02)
--- NOTE | 2019-12-25 18:35 | NUR ---
End of shift: Needs attended. No change in assessment. Patient's breathing is on and off tachypneic. Breathing is more calm when patient is asleep.
--- NOTE | 2019-12-25 19:30 | NUR ---
Initial Note: Received report from vinny RN. Patient is in bed awake. No acute distress. Even, nonlabored breathing on room air. PICC line dressing on R upper arm is dry, patent, and intact. TPN, Lipids, and IV fluids are infusing well. Delgado is draining yellow, clear urine to gravity. Bed is at lowest position, locked, side rails up x3. Call light is with patient. Will continue plan of care.
[2019-12-25 20:00] VITALS: BP_SYST 137
[2019-12-25] MEDS: FAT EMULSIONS 250 ML IV SCH (20:59)
[2019-12-25] MEDS ORDERED: SODIUM ACETATE IV SCH ×11 (21:00)
[2019-12-25] MEDS ORDERED: [UNRECOGNIZED DRUG - OTHER] IV SCH ×11 (21:00)
[2019-12-25] MEDS ORDERED: TPN CENTRAL IV SCH ×11 (21:00)
[2019-12-25] MEDS ORDERED: POTASSIUM ACETATE IV SCH ×11 (21:00)
--- NOTE | 2019-12-25 22:45 | NUR ---
Rounds: Patient is in bed sleeping. No signs of acute distress. Respirations are even nonlabored on room air. PICC line dressing dry, patent, and intact. Receiving TPN, Lipids, and IV fluids as ordered. Delgado is draining to gravity. Call light is with patient. Safety and fall precautions are in place. Will continue to monitor.
[2019-12-26] VITALS: BP_SYST 125
--- NOTE | 2019-12-26 01:20 | NUR ---
Rounds: Patient is in bed sleeping. No signs of acute distress. Breathing is even and nonlabored on room air. Call light is with patient. Bed is at lowest position, locked. Side rails up x3. Bed alarm is on. Safety and fall precautions are in place. Will continue to monitor.
[2019-12-26] MEDS: IPRATROPIUM/ALBUTEROL SULFATE 3 ML AMPUL.NEB (DUONEB) INH SCH ×5 (03:31→23:11)
--- NOTE | 2019-12-26 03:55 | NUR ---
Rounds: Patient is in bed resting. No signs of acute distress. Breathing is even and nonlabored. Bed is at lowest position, locked. Side rails up x3. Bed alarm on. Call light is with patient. Safety and fall precaution in place. Will continue to monitor.
[2019-12-26] MEDS: PIPERACILLIN/TAZO 2.25G/DEX-IS 50 ML IV SCH ×3 (05:12→17:26)
--- NOTE | 2019-12-26 06:00 | NUR ---
PICC line care: PICC line dressing change performed at this time. Patient tolerated well. Sterile technique utilized. TPN, lipids, IV fluids infusing as ordered. Call light is with patient. Safety, fall precautions in place. Will continue to monitor.
--- NOTE | 2019-12-26 06:41 | NUR ---
Closing note: Patient is in bed resting. No signs of acute distress. Nonlabored, even breathing on room air. PICC line dressing is dry, patent, and intact. PICC line infusing TPN, Lipids, and IVF as ordered. Delgado is draining to gravity. Bed is at lowest position, locked. Side rails up. Bed alarm is on. All needs met. Call light is with patient. Safety and fall precautions in place. Will endorse care to dayshift RN
--- NOTE | 2019-12-26 08:00 | NUR ---
Initial notes- IN bed, awake. on room air. tolerating well at this time. has garbled speech. Oral suctioning done but patient is very uncooperative at this time. on TPN/LIPIDS/IVF, has BENJAMÍN picc line. Delgado catheter infusing well. Afebrile. No acute distress noted. Will monitor.
[2019-12-26 08:02] LABS: ALANINE AMINOTRANSFERASE 40 U/L (12-78); ALBUMIN 1.9 g/dL (3.4-4.8); ANION GAP 6 (5-15); ASPARTATE AMINOTRANSFERASE 41 U/L (10-37); CALCIUM 8.5 mg/dL (8.4-11.0); CHLORIDE 103 mmol/L (98-107); CREATININE 2.01 mg/dL (0.55-1.30); GLUCOSE 128 mg/dL (70-99); PHOSPHORUS 3.7 mg/dL (2.7-4.5); POTASSIUM 3.8 mmol/L (3.5-5.1); SODIUM SERUM 135 mmol/L (136-145); TOTAL BILIRUBIN 0.8 mg/dL (0.0-1.0); TRIGLYCERIDES 140 mg/dL (30-150); UREA NITROGEN, BLOOD 40 mg/dL (8-21)
[2019-12-26 08:03] VITALS: BP_SYST 126
[2019-12-26] MEDS: PANTOPRAZOLE SODIUM 40 MG/VIAL (PROTONIX) IVP SCH ×2 (08:15→21:22)
--- NOTE | 2019-12-26 09:11 | NUR ---
Spoke with Sandra. She is aware of video swallow order.
--- NOTE | 2019-12-26 10:00 | NUR ---
Notes- Turned and repositioned. Oral care and suctioning done. on room air o2 sat is 95% in RA.
[2019-12-26] MEDS ORDERED: BARIUM SULFATE 135 ML SUSP.RECON (E-Z-HD) PO ONE (11:04)
--- NOTE | 2019-12-26 11:50 | NUR ---
S.T. VIDEOFLUOROSCOPIC SWALLOW STUDY (VFSS) VFSS COMPLETED. 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 NO DIFFERENCE WITH VISCOSITY OF BOLUS PRESENTATIONS. EVEN THOUGH PT DID NOT SHOW ASPIRATION, HE IS NOT A REALISTIC CANDIDATE FOR P.O. DIET DUE TO AFOREMENTIONED IMPAIRMENT. REC: NPO - ALTERNATIVE METHOD FOR FEEDING. NURSE JONA HENLEY NOTIFIED.
--- NOTE | 2019-12-26 12:10 | NUR ---
Discharge Planning: DCP faxed pt referral to [facility] (f [phone] p [phone]) DCP to follow up
--- NOTE | 2019-12-26 12:12 | NUR ---
Notes- Awake, resting. No distress noted.
[2019-12-26 12:17] VITALS: BP_SYST 137
[2019-12-26] MEDS: D5/0.45 NS 1,000 ML IV SCH (15:36)
--- NOTE | 2019-12-26 16:05 | NUR ---
Notes- Asleep, breathing even and unlabored. no distress noted.
[2019-12-26 16:19] VITALS: BP_SYST 105
--- NOTE | 2019-12-26 18:33 | NUR ---
Notes- Asleep, on room air saturating 96%. No acute distress noted. Will endorse.
--- NOTE | 2019-12-26 19:15 | NUR ---
OPENING NOTES received report from day shift rn. pt is resting in bed, no signs of acute distress noted. hob raised, breathing is unlabored. iv sites patent, no signs of infiltration and infection noted. ivf, tpn and lipids infusing well. bed at lowest position and locked. bed alarm is on. seizure precautions maintained. scd's attached, operating well. call light with pt, unable to verbalize and demonstrate proper use of call light if assistance is needed. will continue to monitor. Addendum: 12/26/19 at 2303 by Sloan Johnson RN additional notes: bautista catheter attached, secured and draining by gravity.
[2019-12-26 20:00] VITALS: BP_SYST 138
[2019-12-26] MEDS ORDERED: SODIUM ACETATE IV SCH ×12 (21:00)
[2019-12-26] MEDS ORDERED: [UNRECOGNIZED DRUG - OTHER] IV SCH ×12 (21:00)
[2019-12-26] MEDS ORDERED: TPN CENTRAL IV SCH ×12 (21:00)
[2019-12-26] MEDS ORDERED: POTASSIUM ACETATE IV SCH ×12 (21:00)
--- NOTE | 2019-12-26 21:00 | NUR ---
ROUNDS pt resting in bed, no signs of discomfort noted. safety, fall and seizure precautions in place. will continue to monitor.
[2019-12-26] MEDS: FAT EMULSIONS 250 ML IV SCH (21:24)
--- NOTE | 2019-12-26 23:03 | NUR ---
ROUNDS pt resting in bed, no signs of acute distress noted. safety, fall and seizure precautions maintained. will continue to monitor.
[2019-12-27] MEDS: PIPERACILLIN/TAZO 2.25G/DEX-IS 50 ML IV SCH ×4 (00:08→18:27)
[2019-12-27 00:40] VITALS: BP_SYST 133
--- NOTE | 2019-12-27 01:00 | NUR ---
ROUNDS pt resting in be at this time, no signs of acute distress. safety and fall precautions maintained. will continue to monitor.
--- NOTE | 2019-12-27 03:00 | NUR ---
ROUNDS pt resting in be at this time, no signs of discomfort noted. safety and fall precautions in place, will continue to monitor.
[2019-12-27] MEDS: IPRATROPIUM/ALBUTEROL SULFATE 3 ML AMPUL.NEB (DUONEB) INH SCH ×5 (03:27→19:28)
--- NOTE | 2019-12-27 05:00 | NUR ---
ROUNDS Patient in bed asleep at this time. No signs of discomfort noted. Chest rise and fall even bilaterally. Call light with patient. Bed alarm on. Will continue to monitor.
--- NOTE | 2019-12-27 06:40 | NUR ---
CLOSING NOTES Patient in bed, resting. No s/s of acute distress noted. Breathing even and unlabored. HOB raised. IVF, Lipids, and TPN infusing well. IV site patent, no signs of infiltration or infection noted. Skin warm and dry to touch. Delgado attached, secured, and draining by gravity. SCDs attached and operating. All needs met throughout shift. Fall and safety precautions maintained throughout shift. Will continue to monitor until patient care is endorsed to oncoming dayshift nurse.
[2019-12-27 07:48] LABS: ALANINE AMINOTRANSFERASE 42 U/L (12-78); ALBUMIN 1.6 g/dL (3.4-4.8); ANION GAP 10 (5-15); ASPARTATE AMINOTRANSFERASE 49 U/L (10-37); CALCIUM 8.1 mg/dL (8.4-11.0); CHLORIDE 105 mmol/L (98-107); CREATININE 1.91 mg/dL (0.55-1.30); GLUCOSE 132 mg/dL (70-99); PHOSPHORUS 3.3 mg/dL (2.7-4.5); POTASSIUM 3.4 mmol/L (3.5-5.1); SODIUM SERUM 140 mmol/L (136-145); TOTAL BILIRUBIN 0.7 mg/dL (0.0-1.0); UREA NITROGEN, BLOOD 37 mg/dL (8-21)
[2019-12-27 08:00] VITALS: BP_SYST 111
--- NOTE | 2019-12-27 08:00 | NUR ---
initial notes rec patient awake garbled when he talks. ivf infusing well on the upper picc line with a reg iv, melissa burchid. no infiltration noted. resp easy andunlabored. bed to the lowest position and side rails up and locked. call light withn reached and patient close to the nurses station.
[2019-12-27] MEDS: PANTOPRAZOLE SODIUM 40 MG/VIAL (PROTONIX) IVP SCH (09:03)
--- NOTE | 2019-12-27 10:00 | NUR ---
rounds due meds were given and cinthya well. sleeps at intervals. no sob noted.
[2019-12-27 11:10] VITALS: BP_SYST 133
--- NOTE | 2019-12-27 11:22 | NUR ---
Nutrition F/U Admitting Diagnosis: Hyperkalemia, Renal Failure Medical History Comment: PMHx includes HTN, mild dementia, ESRD per physician notes. Pt was admitted for severe hypotension, acute renal failure, GI and rectal bleeding, septic shock, acute encephalopathy, and respiratory failure per physician notes. 12/20: notes, dialysis cath has been removed, renal function slowly improving and may not need a replacement of dialysis catheter. Second attempt to insert another tube through oral cavity was unsuccessful and ends up bringing up excess amount of secretion. Once able to wean off the vent, plan for EGD and GT placement in the future. Subjective Information Pt is out of ICU and was extubated 12/22. Yesterday, 12/25, pt failed video swallow eval and ST rec: NPO, alternative method of feeding pt. Per , pt is on TPN for now. NG tube insertion not possible with conventional method. He may need a G tube as swallowing function has not returned after extubation. However, he is still working hard to breathe, and would like the respiratory status to be better prior to the procedure and sedation. We may need anesthesia support if he ultimately needs a G tube. Pt now w/ increased calorie needs and RD s/w pharmD re: increase in TPN rate. TG noted to be WNL. Current Diet Order/Nutrition Support: NPO +D50% AA10% at 54ml/hr, Lipids 20% at 5ml/hr via Central line. Current TPN provides: 1602 kcal, 65gm protein, 1416 ml fluids per day and GIR 4.3 gm CHO/kg/min. Meets: 88% of upper end of estimated calorie needs and 74% of upper end of estimated protein needs. Pertinent Medications piperacillin/tazobactam, Heparin, Protonix, Insulin Pertinent Labs (12/26) BG 132H, POC BG 124H, BUN 37H (trending down), CRE 1.91 H (trending down), (12/25) TG 140 WNL COVID-19 Negative x 2 (12/13 & 12/14) Height (Feet): 6 feet Height (Inches) 6.00 inches Weight (Pounds) 114 pounds Weight (Calculated Kilograms) 51.851 kilograms Body Mass Index 13.2 kg/m2 Skin Integrity Comment: Ludin Score: 14 (Improved) Per RN note, no pressure injuries identified, +1 non-pitting edema to BLE. Current % PO N/A, NPO NEW Estimated Energy Expenditure (kcals/day) 4947-7676 kcal/day (30-35 kcal/kg CBW for sepsis) Estimated Protein Required (g/day) 59-88gm/day (1-1.5g/kg based on ESRD, critical illness, sepsis) Estimated Fluid Required (l/day) Fluid needs deferred to MD d/t TRE, HD. Problem/Etiology/Signs/Symptoms Inadequate enteral infusion related to unknown nasal obstruction as evidenced by unsuccessful NGT and OGT placement (*ongoing) Increased nutrient needs related to increased metabolic demands as evidenced by critical illness, sepsis (*ongoing) Expected Outcomes/Goals Monitor intake from nutrition support w/ goal of pt meeting at least 80% of estimated nutritional needs, labs trending WNL, normal GI function, and skin integrity/wt maintenance Dietitian Recommendations * Recommend: keep NPO. * Recommend: D50% AA10% at 60ml/hr (goal rate), IL 20% at 5ml/hr via central line. Provides: 1752 kcal, 72 gm protein, 1560ml fluid and GIR 4.8gm CHO/kg/min. Meets: 96% of upper end of estimated calorie needs and 82% of upper end of estimated protein needs. Follow Up High Risk: F/U in 2-3days
--- NOTE | 2019-12-27 11:42 | NUR ---
Dietitian Recommendations * Recommend: keep NPO. * Recommend: D50% AA10% at 60ml/hr (goal rate), IL 20% at 5ml/hr via central line. Provides: 1752 kcal, 72 gm protein, 1560ml fluid and GIR 4.8gm CHO/kg/min. Meets: 96% of upper end of estimated calorie needs and 82% of upper end of estimated protein needs. RD s/w pharmD 1026 Please see Nutrition F/U note for details. KAMILAH, RD
--- NOTE | 2019-12-27 11:49 | NUR ---
PAGED PAGED NAVA NEVAREZ AT [phone] SPOKE WITH JUDY.
--- NOTE | 2019-12-27 11:51 | NUR ---
LTAC: Per Nati, the pt is accepted at [facility]. Will need discharge order to get bed released from [facility]. Dr. Grhaam made aware, GYPSY Olson made aware. Addendum: 12/27/19 at 1233 by Anam Red RN Notified family via speaker phone with niece/Keshia # [phone] and sister/ Carmela # [phone]. Keshia asked to call her first, Carmela is [facility]. Both stay together in same home. DC plan to transfer pt to [facility] today for continuation of care. The pt failed ST eval with severe dysphagia and will need to be on TPN, PEG eval, Renal monitoring per GI recommendation. Both Keshia and Carmela are agreeable with the POC and transfer to [facility]. The transfer is pending the dc order from dr. Graham.
[2019-12-27 12:26] VITALS: BP_SYST 125
--- NOTE | 2019-12-27 12:30 | NUR ---
rounds no hypo hyperglycemic reaction noted. bed to the lowest position and side rails up and locked.
--- NOTE | 2019-12-27 13:30 | NUR ---
Per Dr. Graham; may discharge the pt to [facility].
[2019-12-27] MEDS: D5/0.45 NS 1,000 ML IV SCH (13:42)
--- NOTE | 2019-12-27 15:24 | NUR ---
Discharge Planning: DCP arranged transportation with [facility] ([phone]) 8:00pm P/U to [facility] # to report [phone] Rm [id number]. DCP made CM and [employer] aware and DCP took pt packet to nurse station.
--- NOTE | 2019-12-27 16:00 | NUR ---
rounds dr desir came and will d/c patient to [facility]. sleeps at intervals.
[2019-12-27 16:23] VITALS: BP_SYST 129
--- NOTE | 2019-12-27 18:22 | NUR ---
closing notes pt will be going to [facility] at 2000 tonight. pt was turned repositioned. resting comfortably. with tpn lipids infusing well on the r picc line area. no infiltration noted. no sob noted. pt close to the nurses station.
[2019-12-27 19:28] VITALS: BP_SYST 129
--- NOTE | 2019-12-27 19:45 | NUR ---
REPORT GIVEN TO BRAYAN RN @ [facility].
[2019-12-27] MEDS ORDERED: TPN CENTRAL IV SCH ×12 (21:00)
[2019-12-27] MEDS ORDERED: SODIUM ACETATE IV SCH ×12 (21:00)
[2019-12-27] MEDS ORDERED: SODIUM CHLORIDE IV SCH ×12 (21:00)
[2019-12-27] MEDS ORDERED: [UNRECOGNIZED DRUG - OTHER] IV SCH ×12 (21:00)
--- NOTE | 2019-12-27 21:25 | NUR ---
TPN ,LIPID D/C. TELE BOX D/C.TO [facility].
== END 2019-12-27 21:45 | DRG 870 ==
LOC: SED 18:29 → EEVIPCON 12-13 00:35 → SIC 12-13 00:35 → STU 12-24 14:04
PROVIDERS: ADMIT Internal Medicine Hospice and Palliative Medicine; ATTEND Internal Medicine Hospice and Palliative Medicine
PROC: 5A1955Z Respiratory Ventilation, Greater than 96 Consecutive Hours (ICD-10-PCS; principal; 2019-12-13)
PROC: 0BH17EZ Insertion of Endotracheal Airway into Trachea, Via Natural or Artificial Opening (ICD-10-PCS; 2019-12-13)
PROC: 02HV33Z Insertion of Infusion Device into Superior Vena Cava, Percutaneous Approach (ICD-10-PCS; 2019-12-13)
PROC: B548ZZA Ultrasonography of Superior Vena Cava, Guidance (ICD-10-PCS; 2019-12-13)
PROC: 5A1D70Z Performance of Urinary Filtration, Intermittent, Less than 6 Hours Per Day (ICD-10-PCS; 2019-12-13)
PROC: 5A1D70Z Performance of Urinary Filtration, Intermittent, Less than 6 Hours Per Day (ICD-10-PCS; 2019-12-14)
PROC: 5A1D70Z Performance of Urinary Filtration, Intermittent, Less than 6 Hours Per Day (ICD-10-PCS; 2019-12-17)
PROC: 30233N1 Transfusion of Nonautologous Red Blood Cells into Peripheral Vein, Percutaneous Approach (ICD-10-PCS; 2019-12-22)
DX: A41.9 Sepsis, unspecified organism (principal); N18.6 End stage renal disease; R65.21 Severe sepsis with septic shock; G93.41 Metabolic encephalopathy; J69.0 Pneumonitis due to inhalation of food and vomit; J96.21 Acute and chronic respiratory failure with hypoxia; D62 Acute posthemorrhagic anemia; I12.0 Hypertensive chronic kidney disease with stage 5 chronic kidney disease or end stage renal disease; J44.1 Chronic obstructive pulmonary disease with (acute) exacerbation; K92.2 Gastrointestinal hemorrhage, unspecified; N17.9 Acute kidney failure, unspecified; E87.5 Hyperkalemia; R73.9 Hyperglycemia, unspecified; R13.10 Dysphagia, unspecified; E16.2 Hypoglycemia, unspecified; E78.00 Pure hypercholesterolemia, unspecified; E87.6 Hypokalemia; F03.90 Unspecified dementia, unspecified severity, without behavioral disturbance, psychotic disturbance, mood disturbance, and anxiety; Z99.2 Dependence on renal dialysis; Z79.899 Other long term (current) drug therapy; Z03.818 Encounter for observation for suspected exposure to other biological agents ruled out
CPT/HCPCS: 36415; 36600; 70450-TC; 71045; 71250-TC; 74150-TC; 74230; 76770; 80048; 80053; 80202-TC; 81000-TC; 82550-TC; 82803-TC; 82962; 83735-TC; 83880; 84100-TC; 84478-TC; 84484; 85025; 85610-TC; 85730-TC; 86705; 86709; 86803; 86886; 86900; 86901; 86920; 86945-TC; 87040-TC; 87070-TC; 87081; 87086; 87205-TC; 87340; 90935; 90937; 92610-GN; 92611-GN; 93005; 94002; 94003; 94640; 94760; 96361; 96374; 96375; 99285; C1751; C9113; G0378; J0610; J1200; J1630; J1644; J1815; J1940; J2060; J2543; J2704; J2916; J3370; J3475; J3480; J3490; J7030; J7042; J7050; J7060; J7131; P9021; P9046; U0003-CS